=== PATIENT | male | born 1930 | race Caucasian/White ===

== ENCOUNTER 2016-08-24 18:08 | Emergency (ER) | payer BC ==
[~2016-08-24] VITALS: Ht 177.8 cm; Wt 75.5 kg
[~2016-08-24 18:08] MED LIST: ATR10 PO; CETI10TA10 PO; INSUINJ14 SQ; INSUINJ4 SQ; LEVO88TA PO; OMEP20CA9 PO; PARO30TA PO; URSO300C4 PO
[2016-08-24 18:10] VITALS: TEMP 36.8; Ht 177.8 cm; Wt 75.5 kg
[2016-08-24] MEDS ORDERED: ONDANSETRON INJ 2 MG/ML 2 ML VIAL IV STA (18:52)
--- NOTE | 2016-08-24 18:54 | DIAGNOSTIC IMAGING REPORT ---
CHEST ONE VIEW PORTABLE CLINICAL HISTORY: eval for pnea mental status change COMPARISON STUDY: 12/14/2013 FINDINGS: The bones soft tissues and hemidiaphragms are normal. The cardiomediastinal silhouette is normal. The lungs are clear. The pulmonary vasculature is normal. IMPRESSION: Negative chest. Electronically signed by: Mike Blackmon M.D. 08/24/2016 6:53 PM Dictated Date/Time: 08/24/2016 6:52 PM
[2016-08-24 19:27] LABS: PROTHROMBIN TIME (PATIENT) 11.1 SECONDS (9.0-12.0)
[2016-08-24 19:41] LABS: ALKALINE PHOSPHATASE 208 U/L (45-117); ALT/SGPT 32 U/L (12-78); AST/SGOT 29 U/L (15-37); BLOOD UREA NITROGEN 16 mg/dl (7-18); BUN/CREATININE RATIO 14.2 (10-20); CALCIUM 8.8 mg/dl (8.5-10.1); CARBON DIOXIDE 28 mmol/L (21-32); CHLORIDE 103 mmol/L (98-107); GLUCOSE 288 mg/dl (70-99); SODIUM 137 mmol/L (136-145)
[2016-08-24 19:43] LABS: HEMATOCRIT 36.2 % (42-52); MEAN CELL VOLUME 94.3 fL (80-100); MEAN CORPUSCULAR HEMOGLOBIN 30.7 pg (25-34); MEAN CORPUSCULAR HGB CONC 32.6 g/dl (32-36); MEAN PLATELET VOLUME 12.2 fL (7.4-10.4); PLATELET COUNT 125 K/uL (130-400); RED BLOOD COUNT 3.84 M/uL (4.7-6.1); WHITE BLOOD COUNT 5.38 K/uL (4.8-10.8)
[2016-08-24 19:48] LABS: BASO % 0.2 %; BASO ABS # 0.01 K/uL (0-0.2); COMPLETE YES; EOS % 0.2 %; IG% 0.2 %; LARGE PLATELETS 1+; LYMPH % 20.6 %; LYMPH ABS # 1.11 K/uL (1.2-3.4); MONO % 8.7 %; NEUT % 70.1 %; PLT ESTIMATE DECREASED
[2016-08-24] MEDS ORDERED: SODIUM CHLORIDE 0.9% 500ML 500 ML IV STA (20:11)
[2016-08-24] MEDS ORDERED: LEVO125T5 PO (21:16)
[2016-08-24] MEDS ORDERED: OPTIRAY 320 IV PRN (21:30)
--- NOTE | 2016-08-24 21:31 | DIAGNOSTIC IMAGING REPORT ---
HEAD CT NONCONTRAST CT DOSE: 537.48 mGy.cm HISTORY: Mental status change eval for bleed/cva TECHNIQUE: Multiaxial CT images of the head were performed without the use of intravenous contrast. Comparison: 07/29/2011 Findings: The paranasal sinuses and mastoid air cells are clear. The calvarium and skull base are intact. The ventricles and sulci are within normal limits. There is no mass, hematoma, midline shift, or acute infarct. Old dystrophic calcification left cerebral hemispheres unaltered. No acute intracranial hemorrhage. No midline shift. Impression: Chronic and age-related change. No acute process. Electronically signed by: Mike Blackmon M.D. 08/24/2016 9:29 PM Dictated Date/Time: 08/24/2016 9:27 PM
--- NOTE | 2016-08-24 21:40 | DIAGNOSTIC IMAGING REPORT ---
ABDOMEN AND PELVIS CT WITH IV AND ORAL CONTRAST CT DOSE: 447.79 mGy.cm HISTORY: Pain. Nausea. eval for colitis TECHNIQUE: Multiaxial CT images of the abdomen and pelvis were performed following the use of intravenous and oral contrast. COMPARISON STUDY: 12/14/2013 FINDINGS: Minimal dependent basilar atelectatic change. Trace amount of ascites surrounding both liver as well as spleen. Trace amount of ascites within the right and to lesser extent left paracolic gutter area Gallbladder is negative for distention. Mild interval thickening of the root of the mesentery. Several celiac axis and upper retroperitoneal nodes slightly progressive from the prior study. Interval removal of the common duct stent. Bowel pattern overall is nonobstructive. Minimal reactive small bowel ileus. The appendix is seen in part and appears unremarkable. Several iliac chain nodes measuring up to 1.4 cm. IMPRESSION: 1. Interval development of mild/moderate abdominal and pelvic adenopathy. 2. Mild bibasilar atelectatic and pleural reactive change. 3. Mild nonobstructive ileus. 2. Potential early developing hepatic cirrhosis with a trace amount of abdominal and pelvic ascites. 3. Mild retroperitoneal mesenteric, and to a lesser extent pelvic sidewall nodes. This is slightly progressive from the prior study. Electronically signed by: Mike Blackmon M.D. 08/24/2016 9:38 PM Dictated Date/Time: 08/24/2016 9:32 PM
[2016-08-24 23:46] VITALS: BP 128/68; PULSE 78; O2SAT 96
--- NOTE | 2016-08-25 01:29 | EMERGENCY ROOM VISIT NOTE ---
History Report prepared by Brock: Ade Mcqueen Under the Supervision of: Dr. Brenden Knox M.D. First contact with patient: 18:16 Chief Complaint: DIARRHEA Stated Complaint: DIARRHEA,NOT FEELING WELL SINCE FRI History of Present Illness The patient is an 85 year old male who presents to the Emergency Room with complaints of persistent diarrhea starting 2 days ago. [facility] was [email or web address] with a fever of 100.4. He has been having 6 episodes of diarrhea per day. His stool is runny. He denies any black or bloody stools. He also has been having trouble keeping his balance starting 1-2 days ago. He is feeling weak all over and lightheaded. He denies any numbness or weakness on one side. He reports nausea and abdominal pain. He describes his abdominal pain as cramping and it comes and goes. He denies any chest pain, SOB, or vomiting. His denies any urinary symptoms. His urine is not dark. He has been drinking fluids. He denies any recent antibiotics. He denies any recent travel out of the country. He just returned from a trip to [place]. No sick contacts. His is not ill. Source of History: patient Onset: 2 days ago Position: other (global) Symptom Intensity: 6 times a day Quality: other (diarrhea) Timing: other (persistent) Associated Symptoms: + fevers, + abdominal pain, + weakness, No chest pain, No SOB, No vomiting, No melena, No hematochezia, No urinary symptoms, No numbness Note: Pt reports feeling off balance, lightheaded. Review of Systems See HPI for pertinent positives & negatives. A total of 10 systems reviewed and were otherwise negative. 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 Family History Diabetes mellitus FHx: gallbladder disease Social History Smoking Status: Never Smoker Marital Status: Housing Status: lives with significant other Occupation Status: retired Current/Historical Medications Scheduled Cetirizine Hcl (Zyrtec), 10 MG PO HS Hydroxyzine HCl (Hydroxyzine HCl), 10 MG PO TID Insulin Aspart (Novolog Penfill), SQ ACHS Insulin Glargine (Lantus Solostar Pen), 10 UNITS SQ BID Levothyroxine Sodium (Levothyroxine Sodium), 125 MCG PO DAILY Omeprazole (Prilosec), 20 MG PO QAM Paroxetine Hcl (Paxil), 30 MG PO HS Ursodiol (Actigall), 300 MG PO TID Allergies Coded Allergies: Latex (Verified Allergy, Intermediate, ERRYTHEMA/BLISTERS, 08/24/16) Sulfa Drugs (Verified Allergy, Unknown, ., 08/24/16) Acetaminophen (Verified Adverse Reaction, Unknown, NOT TO HAVE ANY DUE TO BILIARY ISSUES, 08/24/16) Physical Exam Vital Signs Date Time Temp Pulse Resp B/P (MAP) Pulse Ox O2 Delivery O2 Flow Rate FiO2 08/24/16 23:46 78 18 128/68 96 08/24/16 22:46 78 20 148/68 96 Room Air 08/24/16 21:28 81 20 138/61 93 Room Air 08/24/16 19:59 79 20 118/57 93 Room Air 08/24/16 19:16 79 20 111/55 80 127/70 82 99/66 08/24/16 19:11 80 18 127/70 92 Room Air 08/24/16 18:40 103 08/24/16 18:10 36.8 84 18 128/62 96 Room Air Physical Exam Constitutional: Vital signs reviewed. Eyes: Pupils are equal round reactive to light. Conjunctiva are noninjected. ENT: Pharynx is clear without erythema or exudate. Mucous membranes are dry. Neck supple without meningeal signs. Respiratory: Clear to auscultation bilaterally. Breath sounds are equal bilaterally. Cardiovascular: Regular rate and rhythm. No rubs or gallops. GI: Soft, nondistended and nontender. Bowel sounds are present. Musculoskeletal: No peripheral edema. No lower extremity tenderness. Integumentary: No cyanosis. Neurological: The patient is awake and alert. Cranial nerves II-XII are intact. Motor is 5 out of 5 all extremities. Sensation is intact to light touch all extremities. Normal speech. No pronator drift. No limb ataxia. No dysdiadochokinesis. Psychiatric: Normal affect. Medical Decision & Procedures ER Provider Diagnostic Interpretation: X-ray results as stated below per interpretation by me and the radiologist. Radiology results as stated below per my review and the radiologist's interpretation: CHEST ONE VIEW PORTABLE CLINICAL HISTORY: eval for pnea mental status change COMPARISON STUDY: 12/14/2013 FINDINGS: The bones soft tissues and hemidiaphragms are normal. The cardiomediastinal silhouette is normal. The lungs are clear. The pulmonary vasculature is normal. IMPRESSION: Negative chest. Electronically signed by: Mike Blackmon M.D. 08/24/2016 6:53 PM Dictated Date/Time: 08/24/2016 6:[address] CT DOSE: 537.48 mGy.cm HISTORY: Mental status change eval for bleed/cva TECHNIQUE: Multiaxial CT images of the head were performed without the use of intravenous contrast. Comparison: 07/29/2011 Findings: The paranasal sinuses and mastoid air cells are clear. The calvarium and skull base are intact. The ventricles and sulci are within normal limits. There is no mass, hematoma, midline shift, or acute infarct. Old dystrophic calcification left cerebral hemispheres unaltered. No acute intracranial hemorrhage. No midline shift. Impression: Chronic and age-related change. No acute process. Electronically signed by: Mike Blackmon M.D. 08/24/2016 9:29 PM Dictated Date/Time: 08/24/2016 9:27 PM ABDOMEN AND PELVIS CT WITH IV AND ORAL CONTRAST CT DOSE: 447.79 mGy.cm HISTORY: Pain. Nausea. eval for colitis TECHNIQUE: Multiaxial CT images of the abdomen and pelvis were performed following the use of intravenous and oral contrast. COMPARISON STUDY: 12/14/2013 FINDINGS: Minimal dependent basilar atelectatic change. Trace amount of ascites surrounding both liver as well as spleen. Trace amount of ascites within the right and to lesser extent left paracolic gutter area Gallbladder is negative for distention. Mild interval thickening of the root of the mesentery. Several celiac axis and upper retroperitoneal nodes slightly progressive from the prior study. Interval removal of the common duct stent. Bowel pattern overall is nonobstructive. Minimal reactive small bowel ileus. The appendix is seen in part and appears unremarkable. Several iliac chain nodes measuring up to 1.4 cm. IMPRESSION: 1. Interval development of mild/moderate abdominal and pelvic adenopathy. 2. Mild bibasilar atelectatic and pleural reactive change. 3. Mild nonobstructive ileus. 2. Potential early developing hepatic cirrhosis with a trace amount of abdominal and pelvic ascites. 3. Mild retroperitoneal mesenteric, and to a lesser extent pelvic sidewall nodes. This is slightly progressive from the prior study. Electronically signed by: Mike Blackmon M.D. 08/24/2016 9:38 PM Dictated Date/Time: 08/24/2016 9:32 PM Laboratory Results 08/24/16 18:55 Red Blood Count 3.84, Mean Corpuscular Volume 94.3, Mean Corpuscular Hemoglobin 30.7, Mean Corpuscular Hemoglobin Concent 32.6, Mean Platelet Volume 12.2, Neutrophils (%) (Auto) 70.1, Lymphocytes (%) (Auto) 20.6, Monocytes (%) (Auto) 8.7, Eosinophils (%) (Auto) 0.2, Basophils (%) (Auto) 0.2, Neutrophils # (Auto) 3.77, Lymphocytes # (Auto) 1.11, Monocytes # (Auto) 0.47, Eosinophils # (Auto) 0.01, Basophils # (Auto) 0.01 08/24/16 18:55 Test 08/24/16 18:55 White Blood Count 5.38 K/uL (4.8-10.8) Red Blood Count 3.84 M/uL (4.7-6.1) Hemoglobin 11.8 g/dL (14.0-18.0) Hematocrit 36.2 % (42-52) Mean Corpuscular Volume 94.3 fL (80-100) Mean Corpuscular Hemoglobin 30.7 pg (25-34) Mean Corpuscular Hemoglobin Concent 32.6 g/dl (32-36) Platelet Count 125 K/uL (130-400) Mean Platelet Volume 12.2 fL (7.4-10.4) Neutrophils (%) (Auto) 70.1 % Lymphocytes (%) (Auto) 20.6 % Monocytes (%) (Auto) 8.7 % Eosinophils (%) (Auto) 0.2 % Basophils (%) (Auto) 0.2 % Neutrophils # (Auto) 3.77 K/uL (1.4-6.5) Lymphocytes # (Auto) 1.11 K/uL (1.2-3.4) Monocytes # (Auto) 0.47 K/uL (0.11-0.59) Eosinophils # (Auto) 0.01 K/uL (0-0.5) Basophils # (Auto) 0.01 K/uL (0-0.2) RDW Standard Deviation 55.4 fL (36.4-46.3) RDW Coefficient of Variation 15.9 % (11.5-14.5) Immature Granulocyte % (Auto) 0.2 % Immature Granulocyte # (Auto) 0.01 K/uL (0.00-0.02) Platelet Estimate DECREASED Large Platelets 1+ Prothrombin Time 11.1 SECONDS (9.0-12.0) Prothromb Time International Ratio 1.0 (0.9-1.1) Activated Partial Thromboplast Time 25.4 SECONDS (21.0-31.0) Partial Thromboplastin Ratio 1.0 Anion Gap 6.0 mmol/L (3-11) Est Creatinine Clear Calc Drug Dose 49.8 ml/min Estimated GFR () 70.1 Estimated GFR (Non- 60.5 BUN/Creatinine Ratio 14.2 (10-20) Calcium Level 8.8 mg/dl (8.5-10.1) Total Bilirubin 0.6 mg/dl (0.2-1) Direct Bilirubin mg/dl (0-0.2) Aspartate Amino Transf (AST/SGOT) 29 U/L (15-37) Alanine Aminotransferase (ALT/SGPT) 32 U/L (12-78) Alkaline Phosphatase 208 U/L (45-117) Troponin I < 0.015 ng/ml (0-0.045) Total Protein 7.9 gm/dl (6.4-8.2) Albumin 2.8 gm/dl (3.4-5.0) Lipase 32 U/L (73-393) Chemistry Specimen Hemolysis Laboratory results as reviewed by me. Medications Administered Medications (Trade) Dose Ordered Sig/Santhosh Route Start Time Stop Time Status Last Admin Dose Admin Ondansetron HCl (Zofran Inj) 4 mg NOW STAT IV 08/24/16 18:52 08/24/16 18:53 DC 08/24/16 19:09 4 MG Sodium Chloride 500 ml @ 999 mls/hr Q31M STAT IV 08/24/16 20:11 08/24/16 20:41 DC 08/24/16 20:38 999 MLS/HR ECG Indication: weakness Rate (beats per minute): 79 Rhythm: normal sinus Findings: RBBB, no acute ischemic change Comparison ECG Date: Nov 2013 Change: no significant change ED Course 1818: The patient was evaluated in room A3. A complete history and physical exam was performed. 1851: Zofran Inj 4 mg IV. 2010: NSS 500 ml @ 999 mls/hr IV. 2012: I reevaluated the patient. I updated him and the family on the lab results. 0: I reevaluated the patient. He is still having diarrhea. We are waiting on the C diff results. He feels better after IV fluids. I discussed the test results and abnormal CT with him. 2323: Upon reevaluation, the patient appeared to have improvement of his symptoms. I discussed tonight's findings with him. He verbalized agreement of the treatment plan. He was discharged home. Medical Decision This is an 85-year-old male who presents with generalized weakness, imbalance and diarrhea. Differential diagnosis includes dehydration, foodborne illness, electrolyte abnormality, colitis, diverticulitis, intracranial hemorrhage. I did perform a limited focused review of portions of the patient's old chart on the electronic medical record. The patient has had no recent pertinent visits to this hospital. Medication Reconciliation: I attest that I have personally reviewed the patient' s current medication list. Blood Pressure Screening: Patient was found to have an elevated blood pressure and was referred to their primary doctor for recheck and further treatment. I did evaluate the patient as noted above. The patient is presenting with generalized weakness. He has had diarrhea. He states he feels lightheaded and off balance when he stands up. IV access was established. The patient was placed on a continuous cane weigher. I did order and personally review the patient's 12-lead EKG and chest x-ray as described above. I did order and review the patient's blood work as noted in the electronic medical record. He is anemic and slightly thrombocytopenic. He has had this in the past. His sugar is also elevated. He does have a history of diabetes. I did obtain orthostatic vital signs. He does show orthostatic hypotension. This is likely secondary to dehydration from his diarrhea. He was given normal saline IV. I did order a CT of the head, abdomen and pelvis. I did review the images myself as well as the radiology report as described above. He does have lymphadenopathy and signs of ileus. I did order a stool culture. Antigen testing for C. difficile was negative. I did discuss the test results with the patient and his family. He states he is feeling much better now after he received fluids. He does feel well enough for discharge. I did discuss the test results with the patient and his family in detail. He states that he did not know that he had a prior history of anemia and thrombocytopenia. He will follow up with his doctor and discuss his test results with his doctor. He was discharged in good condition. Impression Primary Impression: Dehydration Additional Impressions: Orthostatic hypotension Diarrhea Hyperglycemia Anemia Thrombocytopenia Abdominal lymphadenopathy Scribe Attestation The scribe's documentation has been prepared under my direct and personally reviewed by me in its entirety. I confirm that the note above accurately reflects all work, treatment, procedures, and medical decision making performed by me. Departure Information Dispostion Home / Self-Care Referrals Tierra Little, (PCP) Forms HOME CARE DOCUMENTATION FORM, IMPORTANT VISIT INFORMATION, WORK / SCHOOL INSTRUCTIONS Patient Instructions ED Hypotension Orthostatic, ED Vomiting Diarrhea Nonspecific Ad, My [facility] Additional Instructions You have been examined and treated today on an emergency basis only. This is not a substitute for, or an effort to provide, complete comprehensive medical care. It is impossible to recognize and treat all injuries or illnesses in a single emergency department visit. It is therefore important that you follow up closely with your physician. Call as soon as possible for an appointment. Talk to your doctor about your CT scan results. Return for worsening symptoms or if you develop fever, vomiting, chest pain or shortness of breath, or any other concerning symptoms. Problem Qualifiers Additional Impressions: Diarrhea Diarrhea type: unspecified type Qualified Codes: R19.7 - Diarrhea, unspecified Anemia Anemia type: unspecified type Qualified Codes: D64.9 - Anemia, unspecified
[2016-12-09] MEDS ORDERED: INSU1INJ SC (13:20)
[2016-12-24] MEDS ORDERED: CEPH500C PO (11:06)
[2017-01-28] MEDS ORDERED: FURO-85 PO (10:18)
[2017-01-28] MEDS ORDERED: DIPH25CA5 PO (10:18)
[2017-01-28] MEDS ORDERED: LEVO137C2 PO (10:18)
[2017-01-28] MEDS ORDERED: CEPH500T PO (10:18)
[2017-01-28] MEDS ORDERED: POTA10CA28 PO (10:18)
[2017-01-28] MEDS ORDERED: NVLGI7030 SC ×2 (10:18)
[2017-02-19] MEDS ORDERED: CEPH500C PO (15:08)
== END 2016-08-24 23:47 | disposition home or self-care (01) ==
LOC: C.EDB 18:09 → C.EDA 23:47
DX: E86.0 Dehydration (principal); I95.1 Orthostatic hypotension; R19.7 Diarrhea, unspecified; K74.3 Primary biliary cirrhosis; Z79.4 Long term (current) use of insulin; Z79.899 Other long term (current) drug therapy; Z88.2 Allergy status to sulfonamides; Z88.6 Allergy status to analgesic agent; Z91.040 Latex allergy status; Z83.3 Family history of diabetes mellitus; Z83.79 Family history of other diseases of the digestive system

== ENCOUNTER → 2016-09-09 | Outpatient (CLI) | payer BC ==
[~2016-09-09] MED LIST changes: +CEPH500C PO; +CEPH500T PO; +DIPH25CA5 PO; +FURO-85 PO; +INSU1INJ SC; +LEVO125T5 PO; +LEVO137C2 PO; -LEVO88TA PO; +NVLGI7030 SC; +POTA10CA28 PO
--- NOTE | 2016-09-09 12:58 | DIAGNOSTIC IMAGING REPORT ---
Venous Doppler left leg VENOUS DOPP LOWER EXT UNILAT CLINICAL HISTORY: LEFT LOWER LEG PAIN SWELLING pain. Edema. TECHNIQUE: Venous Doppler COMPARISON STUDY: None FINDINGS: Normal study IMPRESSION: Normal study Electronically signed by: Mike Blackmon M.D. 09/09/2016 12:57 PM Dictated Date/Time: 09/09/2016 12:55 PM
[2016-09-09 14:50] LABS: BASO % 0.7 %; BASO ABS # 0.03 K/uL (0-0.2); COMPLETE YES; EOS % 5.5 %; HEMATOCRIT 33.5 % (42-52); IG% 0.2 %; LYMPH ABS # 1.35 K/uL (1.2-3.4); MEAN CELL VOLUME 94.1 fL (80-100); MEAN CORPUSCULAR HEMOGLOBIN 29.8 pg (25-34); MEAN CORPUSCULAR HGB CONC 31.6 g/dl (32-36); MEAN PLATELET VOLUME 12.5 fL (7.4-10.4); MONO % 7.6 %; PLATELET COUNT 146 K/uL (130-400); RED BLOOD COUNT 3.56 M/uL (4.7-6.1); WHITE BLOOD COUNT 4.22 K/uL (4.8-10.8)
[2016-09-09 14:59] LABS: ALT/SGPT 27 U/L (12-78); AST/SGOT 23 U/L (15-37); BLOOD UREA NITROGEN 14 mg/dl (7-18); BUN/CREATININE RATIO 15.7 (10-20); CALCIUM 8.2 mg/dl (8.5-10.1); CARBON DIOXIDE 27 mmol/L (21-32); CHLORIDE 106 mmol/L (98-107); CREATININE 0.92 mg/dl (0.60-1.40); GLUCOSE 261 mg/dl (70-99); POTASSIUM 4.5 mmol/L (3.5-5.1); SODIUM 139 mmol/L (136-145)
[2016-09-09 15:01] LABS: ESTIMATED AVERAGE GLUCOSE 260 mg/dl; HA1C FLAG Normal (Normal)
[2016-09-09 15:09] LABS: ALB/GLOB RATIO 0.6 (0.9-2); ALKALINE PHOSPHATASE 213 U/L (45-117)
== END | disposition home or self-care (01) ==
LOC: C.ULTR 12:26
PROVIDERS: ATTEND Nurse Practitioner Adult Health
DX: M79.662 Pain in left lower leg (principal); M79.89 Other specified soft tissue disorders; E11.9 Type 2 diabetes mellitus without complications; E03.9 Hypothyroidism, unspecified

== ENCOUNTER → 2016-09-23 | Outpatient (CLI) | payer BC ==
[~2016-09-23] MED LIST changes: -CEPH500T PO; -DIPH25CA5 PO; -FURO-85 PO; +LEVO125T4 PO; -LEVO125T5 PO; -LEVO137C2 PO; -NVLGI7030 SC; -POTA10CA28 PO
--- NOTE | 2016-09-23 12:09 | DIAGNOSTIC IMAGING REPORT ---
LEFT KNEE 1 OR 2 VIEWS ROUTINE CLINICAL HISTORY: M79.662 Pain and swelling of left lower [id number] pain COMPARISON: None. DISCUSSION: The bones and joint spaces appear intact. There is no evidence of fracture, dislocation or bony disease. There is no evidence for soft tissue swelling. IMPRESSION: Negative study. Electronically signed by: Mike Blackmon M.D. 09/23/2016 12:08 PM Dictated Date/Time: 09/23/2016 12:07 PM
--- NOTE | 2016-09-23 12:09 | DIAGNOSTIC IMAGING REPORT ---
LEFT ANKLE MIN 3 VIEWS ROUTINE CLINICAL HISTORY: M79.662 Pain and swelling of left lower [id number] COMPARISON: None. DISCUSSION: No acute fractures or dislocations are visualized. There is mild bimalleolar soft tissue swelling. There is minor irregularity the medial malleolar tip. This is likely chronic. IMPRESSION: 1. Mild irregularity of the medial malleolar tip, likely chronic 2. Soft tissue swelling 3. No acute fractures or dislocations identified Electronically signed by: Wesley Chicas M.D. 09/23/2016 12:08 PM Dictated Date/Time: 09/23/2016 12:07 PM
[2016-09-23 14:08] LABS: C-REACTIVE PROTEIN 0.35 mg/dl (0-0.29); URIC ACID 2.8 mg/dl (2.6-7.2)
== END | disposition home or self-care (01) ==
LOC: C.RAD1850 11:35
PROVIDERS: ATTEND Nurse Practitioner Family
DX: M79.89 Other specified soft tissue disorders (principal); M79.662 Pain in left lower leg

== ENCOUNTER → 2016-10-01 | Outpatient (CLI) | payer BC ==
--- NOTE | 2016-10-01 16:54 | DIAGNOSTIC IMAGING REPORT ---
CHEST 2 VIEWS ROUTINE CLINICAL HISTORY: FALL, ACCIDENTAL COMPARISON STUDY: Chest radiograph August 24, 2016. FINDINGS: There is no pneumothorax or pleural effusion. Mild bibasilar opacities favor atelectasis. Mild cardiomegaly is noted without evidence of pulmonary edema. IMPRESSION: 1. No pneumothorax. 2. Mild bibasilar opacities which likely reflect atelectasis. 3. Mild cardiomegaly without evidence of pulmonary edema. Electronically signed by: Justin Lang M.D. 10/01/2016 4:52 PM Dictated Date/Time: 10/01/2016 4:50 PM
== END | disposition home or self-care (01) ==
LOC: C.RAD1850 16:12
PROVIDERS: ATTEND Nurse Practitioner Adult Health
DX: T14.90 Injury, unspecified (principal); W19.XXXA Unspecified fall, initial encounter; I51.7 Cardiomegaly

== ENCOUNTER → 2016-10-07 | Outpatient (CLI) | payer BC ==
[2016-10-07 15:26] LABS: HEMATOCRIT 32.1 % (42-52); MEAN CELL VOLUME 92.8 fL (80-100); MEAN CORPUSCULAR HEMOGLOBIN 28.9 pg (25-34); MEAN CORPUSCULAR HGB CONC 31.2 g/dl (32-36); RED BLOOD COUNT 3.46 M/uL (4.7-6.1); WHITE BLOOD COUNT 4.01 K/uL (4.8-10.8)
[2016-10-07 15:56] LABS: BASO % 0.5 %; BASO ABS # 0.02 K/uL (0-0.2); COMPLETE YES; EOS % 4.5 %; GIANT PLATELETS 2+; IG% 0.2 %; LYMPH % 28.7 %; LYMPH ABS # 1.15 K/uL (1.2-3.4); MEAN PLATELET VOLUME 12.1 fL (7.4-10.4); MONO % 12.5 %; NEUT % 53.6 %; PLATELET COUNT 127 K/uL (130-400); PLT ESTIMATE DECREASED
[2016-10-07 16:06] LABS: TOTAL IRON BINDING CAPACITY 322 mcg/dl (250-450)
== END | disposition home or self-care (01) ==
LOC: C.RAD1850 14:51
PROVIDERS: ATTEND Nurse Practitioner Adult Health
DX: G47.19 Other hypersomnia (principal); D64.9 Anemia, unspecified

== ENCOUNTER → 2016-11-13 | Outpatient (CLI) | payer BC ==
[2016-11-13 16:59] LABS: ALT/SGPT 31 U/L (12-78); AST/SGOT 33 U/L (15-37); BLOOD UREA NITROGEN 14 mg/dl (7-18); BUN/CREATININE RATIO 12.5 (10-20); CALCIUM 8.6 mg/dl (8.5-10.1); CARBON DIOXIDE 29 mmol/L (21-32); CHLORIDE 105 mmol/L (98-107); GLUCOSE 282 mg/dl (70-99); INR 1.1 (0.9-1.1); POTASSIUM 4.5 mmol/L (3.5-5.1); PROTHROMBIN TIME (PATIENT) 11.4 SECONDS (9.0-12.0); SODIUM 138 mmol/L (136-145)
[2016-11-13 17:04] LABS: ALKALINE PHOSPHATASE 251 U/L (45-117); FERRITIN 11.6 ng/ml (8.0-388.0)
== END | disposition home or self-care (01) ==
LOC: C.LAB1850 14:21
PROVIDERS: ATTEND Nurse Practitioner Adult Health
DX: R60.9 Edema, unspecified (principal); K76.9 Liver disease, unspecified; D64.9 Anemia, unspecified

== ENCOUNTER → 2016-12-11 | Outpatient (CLI) | payer BC ==
[~2016-12-11] MED LIST changes: -INSUINJ14 SQ; -INSUINJ4 SQ
[2016-12-11 11:00] LABS: ESTIMATED AVERAGE GLUCOSE 197 mg/dl; HA1C FLAG Normal (Normal)
[2016-12-11 11:06] LABS: BLOOD UREA NITROGEN 16 mg/dl (7-18); BUN/CREATININE RATIO 14.9 (10-20); CALCIUM 8.5 mg/dl (8.5-10.1); CARBON DIOXIDE 27 mmol/L (21-32); CHLORIDE 110 mmol/L (98-107); GLUCOSE 150 mg/dl (70-99); POTASSIUM 4.4 mmol/L (3.5-5.1); SODIUM 141 mmol/L (136-145)
[2016-12-11 11:17] LABS: CHOLESTEROL 131 mg/dl (0-200); CHOLESTEROL/HDL RATIO 2.2; HDL CHOLESTEROL 60 mg/dl; LDL CHOLESTEROL CALCULATED 62 mg/dl; TRIGLYCERIDES 46 mg/dl (0-150); VERY LOW DENSITY LIPOPROT CALC 9 mg/dl
== END | disposition home or self-care (01) ==
LOC: C.RAD1850 09:17
PROVIDERS: ATTEND Nurse Practitioner Family
DX: E11.65 Type 2 diabetes mellitus with hyperglycemia (principal); Z79.4 Long term (current) use of insulin

== ENCOUNTER → 2016-12-30 | Outpatient (CLI) | payer BC ==
--- NOTE | 2016-12-30 14:40 | DIAGNOSTIC IMAGING REPORT ---
ULTRASOUND ABDOMEN COMPLETE CLINICAL HISTORY: Sclerosing cholangitis. Gallbladder mass. COMPARISON STUDY: Abdominal CT dated 08/24/2016. TECHNIQUE: Real-time, grayscale, and color flow sonography of the abdomen was performed. Images are reviewed in the transverse and longitudinal planes. FINDINGS: Liver: The liver is normal in size and heterogeneous in echotexture. There is no intrahepatic biliary ductal dilatation. The main portal vein is patent. Gallbladder: Calcified gallstones and biliary sludge are noted. There is no sonographic evidence of vascular gallbladder mass. There is no gallbladder wall thickening or pericholecystic fluid. A sonographic Enriquez's sign is reportedly absent. The common bile duct measures up to 0.5 cm in diameter. Pancreas: Not well visualized due to overlying bowel gas. Spleen: The spleen is mildly enlarged measuring 14.2 cm in length. Kidneys: The kidneys are atrophic. There is no hydronephrosis. The right kidney measures 11.1 cm in length and the left kidney measures 10.1 cm in length. No shadowing calculi are identified. Abdominal vasculature: Visualized portions of the abdominal aorta are normal as visualized noting atherosclerotic irregularity. Ascites: None. IMPRESSION: 1. Gallstones and biliary sludge without sonographic evidence of acute cholecystitis. 2. There is no convincing sonographic evidence of gallbladder mass as clinically queried. Electronically signed by: Wesley Bui M.D. 12/30/2016 2:39 PM Dictated Date/Time: 12/30/2016 2:36 PM
== END | disposition home or self-care (01) ==
LOC: C.ULTR 10:24
PROVIDERS: ATTEND Internal Medicine Gastroenterology
DX: K83.0 Cholangitis (principal)

== ENCOUNTER 2017-01-15 23:51 | Emergency (ER) | payer BC ==
[~2017-01-15] VITALS: Ht 177.8 cm; Wt 83.0 kg
[~2017-01-15 23:51] MED LIST changes: -CEPH500T PO; -DIPH25CA5 PO; -FURO-85 PO; -LEVO137C2 PO; -NVLGI7030 SC; -OPTIRAY 320 IV PRN; -POTA10CA28 PO
[2017-01-15 23:58] VITALS: TEMP 36.5; Ht 177.8 cm; Wt 83.0 kg
--- NOTE | 2017-01-16 01:09 | EMERGENCY ROOM VISIT NOTE ---
History Report prepared by Brock: Sia Rain Under the Supervision of: Dr. Joe Taveras M.D. First contact with patient: 00:01 Chief Complaint: HYPOGLYCEMIA Stated Complaint: BLOOD SUGAR NUMBER 51 History of Present Illness The patient is an 86 year old male who presents to the Emergency Room with complaints of an episode of hypoglycemia starting today. The patient states that he has been feeling shaky and he noticed his sugars were low. He states that he missed lunch today because he had a CT done. He states that he drank orange juice before coming in. The patient complains of itching like crazy. The patient denies urinary symptoms, chest pain, and shortness of breath. Source of History: patient Onset: today Position: other (global) Quality: other (global) Timing: other (episode) Associated Symptoms: No chest pain, No SOB, No urinary symptoms Note: The patient complains of shaking and itching. Review of Systems See HPI for pertinent positives & negatives. A total of 10 systems reviewed and were otherwise negative. 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 Family History Diabetes mellitus FHx: gallbladder disease Social History Smoking Status: Never Smoker Marital Status: Housing Status: lives with significant other Occupation Status: retired Current/Historical Medications Scheduled Cephalexin Monohydrate (Keflex), 1 CAP PO BID Cetirizine Hcl (Zyrtec), 10 MG PO HS Hydroxyzine HCl (Hydroxyzine HCl), 10 MG PO TID Insulin Isophan/Regular (Humulin 70/30), 0 SC BID Levothyroxine Sodium (Levothyroxine Sodium), 125 MCG PO DAILY Omeprazole (Prilosec), 20 MG PO QAM Paroxetine Hcl (Paxil), 30 MG PO HS Ursodiol (Actigall), 300 MG PO TID Allergies Coded Allergies: Latex (Verified Allergy, Intermediate, ERRYTHEMA/BLISTERS, 08/24/16) Sulfa Drugs (Verified Allergy, Unknown, ., 08/24/16) Acetaminophen (Verified Adverse Reaction, Unknown, NOT TO HAVE ANY DUE TO BILIARY ISSUES, 08/24/16) Physical Exam Vital Signs Date Time Temp Pulse Resp B/P (MAP) Pulse Ox O2 Delivery O2 Flow Rate FiO2 01/16/17 01:58 75 16 126/67 93 Room Air 01/15/17 23:58 36.5 93 16 153/62 99 Room Air Physical Exam GENERAL: Patient is chronically unwell appearing and in no acute distress. HEENT: No acute trauma, normocephalic atraumatic, mucous membranes moist, no nasal congestion, no scleral icterus. NECK: No stridor, no adenopathy, no meningismus, trachea is midline. LUNGS: No dyspnea. Clear to auscultation and equal bilaterally. No wheeze, no rhonchi. HEART: Regular rate and rhythm. No murmurs, rubs, gallops appreciated. ABDOMEN: Soft, nontender, bowel sounds positive, no masses appreciated, no peritonitis. Large abdomen. BACK: No midline tenderness, no CVA tenderness EXTREMITIES: Normal motion all extremities, no cyanosis. Edema in bilateral lower legs. NEUROLOGIC: Alert and oriented, no acute motor or sensory deficits, no focal weakness, cranial nerves grossly intact. SKIN: No rash, no jaundice, no diaphoresis. Medical Decision & Procedures Laboratory Results Test 01/16/17 01:35 Bedside Glucose 130 mg/dl (70-99) Medications Administered Medications (Trade) Dose Ordered Sig/Santhosh Route Start Time Stop Time Status Last Admin Dose Admin Diphenhydramine HCl (Benadryl Cap) 50 mg NOW ONCE PO 01/16/17 01:00 01/16/17 01:02 DC 01/16/17 01:16 50 MG ED Course 0003: The patient was evaluated in room A3. A complete history and physical exam was performed. 0058: I reevaluated the patient and he would like some Benadryl for his chronic itching. 0100: Ordered Benadryl Cap 50 mg PO. 0131: Reevaluated the patient. Discussed results and discharge instructions: He verbalized understanding and agreement. The patient is ready for discharge. Medical Decision 86 yr old male arrives for evaluation of hypoglycemia. History of liver disorder and was having CT done earlier resulting in him not having lunch. Shaky earlier with low BG thus brought to ED for further evaluation. BG low but easily increased with OJ and food. He is in no distress other than chronic itching for which he was given PO Benadryl. No other symptoms and feeling fine. Given clear reason why he was hypoglycemic it seems reasonable avoiding labs. Feeling well with no complaints and requesting discharge. After 2 rounds of normal BG I felt it reasonable to discharge with family who are comfortable with monitoring at home. Head Trauma GCS Score: 15 Medication Reconcilliation Current Medication List: was personally reviewed by me Blood Pressure Screening Patient's blood pressure: Normal blood pressure Blood pressure disposition: Did not require urgent referral Impression Primary Impression: Hypoglycemia Additional Impression: Itching Scribe Attestation The scribe's documentation has been prepared under my direction and personally reviewed by me in its entirety. I confirm that the note above accurately reflects all work, treatment, procedures, and medical decision making performed by me. Departure Information Dispostion Home / Self-Care Referrals Millicnet Dutton C.R.N.P. (PCP) Forms HOME CARE DOCUMENTATION FORM, IMPORTANT VISIT INFORMATION, WORK / SCHOOL INSTRUCTIONS Patient Instructions My [facility] [employer] Additional Instructions Check your blood sugar every few hours over the next few days. Eat a well balanced diet as well. Eat/Drink sugary substance if your blood sugar is going down. Call 911 if confusion, vomiting, altered mental status or other concerns. Problem Qualifiers
[2017-01-16 01:58] VITALS: BP 126/67; PULSE 75; O2SAT 93
[2017-01-28] MEDS ORDERED: NVLGI7030 SC ×2 (10:18)
[2017-01-28] MEDS ORDERED: CEPH500T PO (10:18)
[2017-01-28] MEDS ORDERED: DIPH25CA5 PO (10:18)
[2017-01-28] MEDS ORDERED: LEVO137C2 PO (10:18)
[2017-01-28] MEDS ORDERED: FURO-85 PO (10:18)
[2017-01-28] MEDS ORDERED: POTA10CA28 PO (10:18)
== END 2017-01-16 02:05 | disposition home or self-care (01) ==
LOC: C.EDB 23:53 → C.EDA 01-16 02:05
DX: E16.2 Hypoglycemia, unspecified (principal); L29.9 Pruritus, unspecified; K74.5 Biliary cirrhosis, unspecified; K83.0 Cholangitis; Z83.3 Family history of diabetes mellitus; Z83.79 Family history of other diseases of the digestive system; Z79.899 Other long term (current) drug therapy

== ENCOUNTER → 2017-01-15 | Outpatient (CLI) | payer BC ==
[~2017-01-15] MED LIST changes: +CEPH500T PO; +DIPH25CA5 PO; +FURO-85 PO; -LEVO125T4 PO; +LEVO125T5 PO; +LEVO137C2 PO; +NVLGI7030 SC; +OPTIRAY 320 IV PRN; +POTA10CA28 PO
--- NOTE | 2017-01-15 16:38 | DIAGNOSTIC IMAGING REPORT ---
ABD/PELVIS IV AND ORAL CONT CT DOSE: 484.90 mGy.cm HISTORY: Abnormal CT and ultrasound R93.8 Abnormal finding on [id number] TECHNIQUE: Multiaxial CT images of the abdomen and pelvis were performed following the use of intravenous and oral contrast. A dose lowering technique was utilized adhering to the principles of ALARA. COMPARISON STUDY: CT abdomen and pelvis 08/24/2016. Ultrasound 12/30/2016. FINDINGS: Improving basilar atelectatic and/or fibrotic change in the right as well as left base. Mild stable splenomegaly. Slight heterogeneity of the liver suggesting early hepatic cirrhosis. This is similar. Diminished perihepatic ascites. Stable to slightly progressive para-aortic mesenteric and retroperitoneal adenopathy. Mild body wall anasarca. Somewhat progressive mesenteric eitan pathology. Masslike changes involving the cecum measuring up to 5 cm. Mild generalized colonic wall thickening of the sigmoid and to a lesser extent descending colon. IMPRESSION: 1. Mildly progressive adenopathy of the abdomen, pelvis, and inguinal region. 2. Masslike fecal content versus a developing masslike process in the region of the cecum. 3. Moderate nonspecific wall thickening of the sigmoid as well as descending colonic region. 4. Mild developing anasarca. 6. Mild hepatic cirrhosis. 7. Slightly improved minimal hepatic ascites. The above report was generated using voice recognition software. It may contain grammatical, syntax or spelling errors. Electronically signed by: Mike Blackmon M.D. 01/15/2017 4:36 PM Dictated Date/Time: 01/15/2017 4:26 PM
== END | disposition home or self-care (01) ==
LOC: C.CTS 15:26
PROVIDERS: ATTEND Nurse Practitioner Adult Health
DX: R93.8 Abnormal findings on diagnostic imaging of other specified body structures (principal)

== ENCOUNTER → 2017-02-04 | Day surgery (SDC) | payer BC ==
[2017-01-28 10:29] VITALS: Ht 177.8 cm; Wt 83.2 kg
[~2017-02-04] VITALS: Ht 177.8 cm; Wt 83.2 kg
[~2017-02-04] MED LIST changes: +ATROPINE SULFATE 0.1 MG/ML 5ML SYR IV PRN; -CEPH500C PO; -CETI10TA10 PO; +DIPH25CA5 PO; +EpHEDrine SULFATE INJ 50 MG/ML AMP IV PRN; +FURO-85 PO; -INSU1INJ SC; -LEVO125T5 PO; +LEVO137C2 PO; +LIDOCAINE HCL 2% 2 ML VIAL (20MG/ML) ONE; +NVLGI7030 SC; +POTA10CA28 PO; +PROPOFOL IV EMULSION 10 MG/ML 20 ML VIAL IV ONE
--- NOTE | 2017-02-04 13:30 | Endo History and Physical ---
History & Physical Date of Service: Feb 04, 2017. Chief Complaint: Abnl CT Referring Physician: Dr Dutton History of Present Illness For colonoscopy Past Surgical History Hx Cardiac Surgery: No Hx Internal Defibrillator: No Hx Pacemaker: No Hx Abdominal Surgery: Yes (LIVER STENTS AND REMOVAL, APPY) Hx of Implantable Prosthesis: No Hx Post-Op Nausea and Vomiting: No Hx Cancer Surgery: No Hx Thoracic Surgery: No Hx Orthopedic: No Hx Urinary Tract Surgery: No Family History Colon CA Social History Smoking Status: Never Smoker Hx Substance Use: No Hx Alcohol Use: No Allergies Coded Allergies: Latex (Verified Allergy, Intermediate, ERRYTHEMA/BLISTERS, 01/28/17) Sulfa Drugs (Verified Allergy, Unknown, HIVES, 01/28/17) Acetaminophen (Verified Adverse Reaction, Unknown, NOT TO HAVE ANY DUE TO BILIARY ISSUES, 01/28/17) Current Medications Reported Home Medications Medications Dose Route/Sig Max Daily Dose Days Date Category Dose Instructions Benadryl (Diphenhydramine Hcl) 25 Mg Cap 1-2 Tabs PO HS 01/28/17 Reported Novolog Mix 70/30 (Insulin Aspart Prota 70%/Aspart 30%) Susp 22 Units SC QPM 01/28/17 Reported Novolog Mix 70/30 (Insulin Aspart Prota 70%/Aspart 30%) Susp 28 Units SC QAM 01/28/17 Reported Lasix (Furosemide) 20 Mg Tab 20 Mg PO QAM 01/28/17 Reported Micro-K Ext Rel (Potassium Chloride) 10 Meq Capcr 10 Meq PO QAM 01/28/17 Reported Tirosint (Levothyroxine Sodium) 137 Mcg Cap 1 Cap PO QAM 01/28/17 Reported Hydroxyzine HCl 10 Mg Tab 10 Mg PO TID 09/25/14 Reported Prilosec (Omeprazole) 20 Mg Cap 20 Mg PO QAM 12/14/13 Reported TAKE BEFORE BREAKFAST Paxil (Paroxetine Hcl) 30 Mg Tab 30 Mg PO HS 07/29/11 Reported Actigall (Ursodiol) 300 Mg Cap 300 Mg PO TID 07/29/11 Reported Vital Signs Weight (Kilograms): 83.18 Height (Feet): 5 Height (Inches): 10 Physical Exam General Appearance: WD/WN Respiratory/Chest: Respiratory effort: no dyspnea Cardiovascular: Heart Auscultation: RRR Abdomen: Inspection & Palpation: soft Assessment and Plan [facility]
--- NOTE | 2017-02-04 14:22 | Discharge Instructions ---
Endoscopy Patient Instructions Date / Procedure(s) Performed Feb 04, 2017. Colonoscopy Allergy Information Coded Allergies: Latex (Verified Allergy, Intermediate, ERRYTHEMA/BLISTERS, 01/28/17) Sulfa Drugs (Verified Allergy, Unknown, HIVES, 01/28/17) Acetaminophen (Verified Adverse Reaction, Unknown, NOT TO HAVE ANY DUE TO BILIARY ISSUES, 01/28/17) Discharge Date / Findings Feb 04, 2017. polyps, hemorrhoids Medication Instructions Restart Stopped Medication(s): resume meds Reported Home Medications Medications Dose Route/Sig Max Daily Dose Days Date Category Dose Instructions Benadryl (Diphenhydramine Hcl) 25 Mg Cap 1-2 Tabs PO HS 01/28/17 Reported Novolog Mix 70/30 (Insulin Aspart Prota 70%/Aspart 30%) Susp 22 Units SC QPM 01/28/17 Reported Novolog Mix 70/30 (Insulin Aspart Prota 70%/Aspart 30%) Susp 28 Units SC QAM 01/28/17 Reported Lasix (Furosemide) 20 Mg Tab 20 Mg PO QAM 01/28/17 Reported Micro-K Ext Rel (Potassium Chloride) 10 Meq Capcr 10 Meq PO QAM 01/28/17 Reported Tirosint (Levothyroxine Sodium) 137 Mcg Cap 1 Cap PO QAM 01/28/17 Reported Hydroxyzine HCl 10 Mg Tab 10 Mg PO TID 09/25/14 Reported Prilosec (Omeprazole) 20 Mg Cap 20 Mg PO QAM 12/14/13 Reported TAKE BEFORE BREAKFAST Paxil (Paroxetine Hcl) 30 Mg Tab 30 Mg PO HS 07/29/11 Reported Actigall (Ursodiol) 300 Mg Cap 300 Mg PO TID 07/29/11 Reported Provider Instructions Activity Restrictions - No exercising or heavy lifting for 24 hours. - Do not drink alcohol the day of the procedure. - Do not drive a car or operate machinery until the day after the procedure. - Do not make any important decisions or sign important papers in 24 hours after the procedure. Following Day: - Return to full activity which may include returning to work/school. Diet Start your diet with liquids and light foods (jello, soup, juice, toast). Then eat your usual diet if not nauseated. Treatment For Common After Affects For mild abdominal pain, bloating, or excessive gas: - Rest - Eat lightly - Lie on right side Follow-Up Information Follow-up with JOSE FRANCISCO Sood as scheduled Anesthesia Information What You Should Know You have had a procedure that required some medicine to reduce anxiety and discomfort. This treatment is called moderate sedation. After receiving the treatment, you may be sleepy, but you will be able to breathe on your own. The effects of the treatment may last for several hours. Follow these instructions along with Activity/Diet recommendations noted above: * Do NOT do anything where dizziness or clumsiness would be dangerous. * Rest quietly at home today, then you can be up and about tomorrow. * Have a responsible person stay with you the rest of today. * You may have had an I.V. today. If so, you may take the dressing off later today. Recommendations Call your doctor if: * Trouble breathing * Continuous vomiting for more than 24 hours * Temperature above 101 degrees * Severe abdominal pain or bloating * Pain not relieved by pain medicine ordered * There is increased drainage or redness from any incision * A large amount of rectal bleeding greater than 2-3 tablespoons. (If you had a polyp/s removed or have hemorrhoids, a small amount of blood - from the rectum is to be expected.) * You have any unanswered questions or concerns. IN THE EVENT OF A SERIOUS EMERGENCY, GO TO THE NEAREST EMERGENCY ROOM Your discharge instructions were prepared by provider Presley Gilbert. Patient Instructions Signature Page Skyler Mcnair Patient (or Guardian) Signature/Date: I have read and understand the instructions given to me by my caregivers. Caregiver/RN/Doctor Signature/Date: The above-named patient and/or guardian has received patient instructions on this date. + Original Patient Signature Page (only) stays with chart. Please make copy for patient.
--- NOTE | 2017-02-04 14:37 | Anesthesiology Progress Note ---
Anesthesia Post Op Note Date & Time Feb 04, 2017 at 14:37 Vital Signs Vital Signs Past 12 Hours Date Time Temp Pulse Resp B/P (MAP) Pulse Ox O2 Delivery O2 Flow Rate FiO2 02/04/17 13:30 36.6 114 20 161/62 (95) 95 Room Air Notes Mental Status: alert / awake / arousable, participated in evaluation Pt Amnestic to Procedure: Yes Nausea / Vomiting: adequately controlled Pain: adequately controlled Airway Patency, RR, SpO2: stable & adequate BP & HR: stable & adequate Hydration State: stable & adequate Anesthetic Complications: no major complications apparent
[2017-02-04 15:00] VITALS: BP 148/90; PULSE 72; O2SAT 98
--- NOTE | 2017-02-05 00:24 | GI REPORT ---
Procedure Date: 02/04/2017 1:26 PM Procedure: Colonoscopy Indications: Abnormal CT of the GI tract Medicines: Propofol total dose 250 mg IV, Lidocaine 40 mg IV Complications: No immediate complications. Estimated Blood Loss: Estimated blood loss was minimal. Procedure: Pre-Anesthesia Assessment: - Prior to the procedure, a History and Physical was performed, and patient medications, allergies and sensitivities were reviewed. The patient's tolerance of previous anesthesia was reviewed. - The risks and benefits of the procedure and the sedation options and risks were discussed with the patient. All questions were answered and informed consent was obtained. After I obtained informed consent, the scope was passed under direct vision. Throughout the procedure, the patient's blood pressure, pulse, and oxygen saturations were monitored continuously. The On-site loaner was introduced through the anus and advanced to the cecum, identified by appendiceal orifice and ileocecal valve. The colonoscopy was performed without difficulty. The patient tolerated the procedure well. The quality of the bowel preparation was good. Findings: A 40 mm polypoid lesion was found in the cecum. The lesion was sessile. No bleeding was present. Mucosa was biopsied with a cold forceps for histology. Estimated blood loss was minimal. A 6 mm polyp was found in the descending colon. The polyp was semi-sessile. The polyp was removed with a hot snare. Resection and retrieval were complete. Estimated blood loss: none. Internal hemorrhoids were found during endoscopy. The hemorrhoids were moderate. A few diverticula were found in the recto-sigmoid colon. Impression: - Polypoid lesion in the cecum. Biopsied. - One 6 mm polyp in the descending colon, removed with a hot snare. Resected and retrieved. - Internal hemorrhoids. - Diverticulosis in the recto-sigmoid colon. Recommendation: - Discharge patient to home (ambulatory). - Continue present medications. - Await pathology results. - Return to primary care physician PRN. Presley Gilbert M.D. Presley Gilbert MD 02/04/2017 2:25:51 PM This report has been signed electronically. Note Initiated On: 02/04/2017 1:26 PM I attest to the content of the Intraoperative Record and orders documented therein, exceptions below
== END | disposition home or self-care (01) ==
LOC: C.GI 12:35
PROVIDERS: ATTEND Internal Medicine Gastroenterology
DX: D12.4 Benign neoplasm of descending colon (principal); K64.8 Other hemorrhoids; K57.90 Diverticulosis of intestine, part unspecified, without perforation or abscess without bleeding; E11.9 Type 2 diabetes mellitus without complications; E03.9 Hypothyroidism, unspecified; G47.33 Obstructive sleep apnea (adult) (pediatric); Z80.0 Family history of malignant neoplasm of digestive organs

== ENCOUNTER 2017-03-05 17:06 | Observation (INO) | payer BC ==
[~2017-03-05] VITALS: Ht 177.8 cm; Wt 83.1 kg
[~2017-03-05 17:06] MED LIST changes: -ATROPINE SULFATE 0.1 MG/ML 5ML SYR IV PRN; -EpHEDrine SULFATE INJ 50 MG/ML AMP IV PRN; -LIDOCAINE HCL 2% 2 ML VIAL (20MG/ML) ONE; -PROPOFOL IV EMULSION 10 MG/ML 20 ML VIAL IV ONE
[2017-03-05] MEDS ORDERED: SODIUM CHLORIDE 0.9% 1000ML 1,000 ML IV STA (17:31)
[2017-03-05] MEDS ORDERED: CHOL4POW12 PO ×2 (17:46)
[2017-03-05] MEDS ORDERED: SYN137 PO ×2 (17:46)
--- NOTE | 2017-03-05 17:53 | DIAGNOSTIC IMAGING REPORT ---
CHEST ONE VIEW PORTABLE CLINICAL HISTORY: 86 years-old Male presenting with EVALUATE WEAKNESS. TECHNIQUE: Portable upright AP view of the chest was obtained. COMPARISON: 10/01/2016. FINDINGS: Atherosclerosis of aortic arch. Cardiac silhouette mildly enlarged, unchanged. Mildly prominent pulmonary vasculature similar to prior. Lungs and pleural spaces clear. Osseous structures normal. Upper abdomen normal. IMPRESSION: 1. Cardiomegaly with possible volume overload. No convincing evidence of acute cardiopulmonary disease. Electronically signed by: Juniro Oconnor M.D. 03/05/2017 5:52 PM Dictated Date/Time: 03/05/2017 5:50 PM
[2017-03-05 18:10] LABS: INR 1.1 (0.9-1.1); PROTHROMBIN TIME (PATIENT) 11.4 SECONDS (9.0-12.0)
[2017-03-05 18:23] LABS: HEMATOCRIT 29.5 % (42-52); MEAN CORPUSCULAR HEMOGLOBIN 26.5 pg (25-34); MEAN CORPUSCULAR HGB CONC 30.8 g/dl (32-36); PLATELET COUNT 123 K/uL (130-400); RED BLOOD COUNT 3.43 M/uL (4.7-6.1); WHITE BLOOD COUNT 6.88 K/uL (4.8-10.8)
[2017-03-05 18:24] LABS: BASO % 0.3 %; BASO ABS # 0.02 K/uL (0-0.2); COMPLETE YES; IG% 0.3 %; LARGE PLATELETS 1+; LYMPH % 10.8 %; LYMPH ABS # 0.74 K/uL (1.2-3.4); MONO % 10.3 %; NEUT % 77.3 %; PLT ESTIMATE DECREASED
[2017-03-05 18:26] LABS: BUN/CREATININE RATIO 14.2 (10-20); CALCIUM 8.3 mg/dl (8.5-10.1); CREATININE 1.24 mg/dl (0.60-1.40); MAGNESIUM 1.9 mg/dl (1.8-2.4); POTASSIUM 4.3 mmol/L (3.5-5.1)
[2017-03-05 18:30] LABS: CKMB/CK RATIO 2.8 (0-3.0); THYROID STIMULATING HORMONE 4.81 uIu/ml (0.300-4.500)
[2017-03-05 18:34] LABS: URINE APPEARANCE CLEAR (CLEAR); URINE BILIRUBIN NEG (NEG); URINE COLOR ORANGE; URINE EPITHELIAL CELL AUTO 0-5 /lpf (0-5); URINE NITRITE NEG (NEG); URINE PH 5.5 (4.5-7.5); URINE SPECIFIC GRAVITY 1.022 (1.000-1.030); UROBILINOGEN NEG (NEG)
[2017-03-05 18:35] LABS: MANUAL MICROSCOPIC REQUIRED? NO; REVIEW REQ? NO
--- NOTE | 2017-03-05 18:36 | EMERGENCY ROOM VISIT NOTE ---
History Report prepared by Brock: Oneyda Lucio Under the Supervision of: Dr. Khang Kearney M.D. First contact with patient: 17:17 Chief Complaint: DIZZY Stated Complaint: COLD,SHAKING,DIZZY,CHEST PAIN-IS DIABETIC Nursing Triage Summary: Patient states he was walking the mall and "had a spell, I just ran out of steam", took him to a restaurant and had orange juice, water and jerry crackers with Peanut butter. Pt has tremors in triage, state not usually shakey. States he feels tired, cold and has pain in shoulder and and back and side, left. History of Present Illness The patient is a 86 year old male who presents to the Emergency Room with complaints of sudden dizziness beginning today. The patient states that he was walking to the mall when he suddenly felt dizzy. He states that he was then given orange juice, water, and jerry crackers with peanut butter. The patient also reports having chest pain and the chills. He denies a prior history of heart problems. His family reports that the patient usually does not tremor like he currently is. He reports that he has been treated at the wound clinic for lower extremity edema. His family states that the patient has a history of primary sclerosis cholangitis. He reports that his blood sugar was high this morning. The patient denies any recent urinary or prostate issues. Pt denies LOC, headache, fevers, visual changes, neck pain, breathing difficulties, nausea , vomiting, abdominal pain, back pain, melena, hematochezia, urinary symptoms, numbness, lymphadenopathy, rash, or other complaints. Source of History: patient, family Onset: today Position: other (global) Quality: other (dizziness) Timing: other (sudden ) Associated Symptoms: + chills, + chest pain, No fevers Review of Systems See HPI for pertinent positives and negatives. A total of ten systems were reviewed and were otherwise negative. 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 (14) Thrombocytopenia Family History Diabetes mellitus FHx: gallbladder disease Social History Smoking Status: Never Smoker Drug Use: none Marital Status: Housing Status: lives with significant other Occupation Status: retired Current/Historical Medications Scheduled Furosemide (Lasix), 20 MG PO QAM Hydroxyzine HCl (Hydroxyzine HCl), 10 MG PO TID Insulin Aspart 70/30 (Novolog Mix 70/30), 28 UNITS SC QAM Insulin Aspart 70/30 (Novolog Mix 70/30), 18 UNITS SC QPM Levothyroxine Sodium (Levothyroxine Sodium), 137 MG PO DAILY Omeprazole (Prilosec), 20 MG PO QAM Paroxetine Hcl (Paxil), 30 MG PO HS Potassium Chloride (Micro-K Ext Rel), 10 MEQ PO QAM Ursodiol (Actigall), 300 MG PO TID Miscellaneous Medications Cholestyramine (Questran) Allergies Coded Allergies: Latex (Verified Allergy, Intermediate, ERRYTHEMA/BLISTERS, 03/05/17) Sulfa Drugs (Verified Allergy, Unknown, HIVES, 03/05/17) Acetaminophen (Verified Adverse Reaction, Unknown, NOT TO HAVE ANY DUE TO BILIARY ISSUES, 03/05/17) Physical Exam Vital Signs Date Time Temp Pulse Resp B/P (MAP) Pulse Ox O2 Delivery O2 Flow Rate FiO2 03/05/17 20:05 38.1 03/05/17 19:35 83 18 130/59 97 Room Air 03/05/17 17:35 Room Air 03/05/17 17:32 87 03/05/17 17:17 36.8 82 18 164/75 98 Room Air Physical Exam GENERAL: Awake, alert, dyspneic-appearing, mild distress, tremulous HENT: Normocephalic, atraumatic. Oropharynx unremarkable. EYES: Normal conjunctiva. Sclera non-icteric. NECK: Supple. No nuchal rigidity. FROM. No JVD. RESPIRATORY: Clear to auscultation. CARDIAC: Regular rate, normal rhythm. Extremities warm and well perfused. Pulses equal. ABDOMEN: Soft, non-distended. No tenderness to palpation. No rebound or guarding. No masses. RECTAL: Deferred. MUSCULOSKELETAL: Chest examination reveals no tenderness. The back is symmetrical on inspection without obvious abnormality. There is no CVA tenderness to palpation. No joint edema. LOWER EXTREMITIES: Calves are equal size bilaterally and non-tender. 1+ lower extremity edema. No discoloration. NEURO: Normal sensorium. No sensory or motor deficits noted. SKIN: No jaundice noted. Scattered rash on trunk, upper and lower extremities with secondary excoriation. Medical Decision & Procedures ER Provider Diagnostic Interpretation: Radiology results as stated below per my review and radiologist interpretation: CHEST ONE VIEW PORTABLE CLINICAL HISTORY: 86 years-old Male presenting with EVALUATE WEAKNESS. TECHNIQUE: Portable upright AP view of the chest was obtained. COMPARISON: 10/01/2016. FINDINGS: Atherosclerosis of aortic arch. Cardiac silhouette mildly enlarged, unchanged. Mildly prominent pulmonary vasculature similar to prior. Lungs and pleural spaces clear. Osseous structures normal. Upper abdomen normal. IMPRESSION: 1. Cardiomegaly with possible volume overload. No convincing evidence of acute cardiopulmonary disease. Electronically signed by: Junior Oconnor M.D. 03/05/2017 5:52 PM Dictated Date/Time: 03/05/2017 5:50 PM ABD/PELVIS WITHOUT FOR STONE CLINICAL HISTORY: 86 years-old Male presenting with left flank pain, hematuria. TECHNIQUE: Multidetector CT of the abdomen and pelvis was performed without the use of intravenous contrast. IV contrast: None. A dose lowering technique was used consistent with the principles of ALARA (as low as reasonably achievable). COMPARISON: 01/15/2017. CT DOSE (mGy.cm): The estimated cumulative dose is 1353.76 mGy.cm. FINDINGS: Autocad Detailer topogram: Unremarkable. Lung bases: Persistent bandlike opacity and architectural distortion of the right middle lobe likely scarring. The intraventricular blood pool is less dense than adjacent myocardium consistent with anemia. Persistent prominent pericardial lymph nodes, which are pathologically enlarged. No pericardial or pleural effusion. Liver: Normal morphology. Density consistent with hepatic steatosis. Biliary: Persistent mild intrahepatic biliary ductal dilatation most pronounced in the left hepatic lobe, unchanged in severity from prior exam and incompletely characterized in the lack of intravenous contrast. Normal gallbladder. Pancreas: Severe parenchymal atrophy. Spleen: Normal noncontrast appearance. Adrenal glands: Normal noncontrast appearance. Kidneys and ureters: Evidence of medullary nephrocalcinosis. Nonobstructing 3 mm calculus interpolar region of the right kidney. No hydronephrosis. Ureters normal. Bladder: Mild circumferential bladder wall thickening, likely indicating chronic outlet obstruction. Pelvic organs: Prostate enlargement likely secondary to benign prostatic hyperplasia. Bowel: Large stool burden throughout the rectum consistent with constipation. Mild diffuse wall thickening of the colon. No bowel obstruction. Peritoneal cavity: No free fluid or intraperitoneal gas. Extensive retroperitoneal fat stranding. Lymph nodes: Prominent retroperitoneal lymph nodes stable to slightly increased in size from prior exam. Vasculature: Atherosclerosis of the normal caliber abdominal aorta. Abdominal wall: Normal. Musculoskeletal: Degenerative changes of the spine. IMPRESSION: 1. Large stool burden with mild diffuse wall thickening of the colon suggested. This could suggest constipation with developing stercoral colitis. 2. Diffuse retroperitoneal fat stranding is of uncertain etiology. Differential considerations include stercoral colitis, pancreatitis, or reactive secondary to the presence of lymphadenopathy among other etiologies. 3. Stable to slight interval worsening of diffuse lymphadenopathy. 4. Anemia. 5. Persistent intrahepatic biliary ductal dilatation, which is of unclear etiology, possibly due to a stricture though incompletely characterized without intravenous contrast. 6. Nonobstructing right 3 mm calculus. 7. Prostatomegaly with chronic bladder outlet obstruction. Electronically signed by: Junior Oconnor M.D. 03/05/2017 7:31 PM Dictated Date/Time: 03/05/2017 7:18 PM Laboratory Results 03/05/17 17:45 Red Blood Count 3.43, Mean Corpuscular Volume 86.0, Mean Corpuscular Hemoglobin 26.5, Mean Corpuscular Hemoglobin Concent 30.8, Neutrophils (%) (Auto) 77.3, Lymphocytes (%) (Auto) 10.8, Monocytes (%) (Auto) 10.3, Eosinophils (%) (Auto) 1.0, Basophils (%) (Auto) 0.3, Neutrophils # (Auto) 5.32, Lymphocytes # (Auto) 0.74, Monocytes # (Auto) 0.71, Eosinophils # (Auto) 0.07, Basophils # (Auto) 0.02 03/05/17 17:45 Test 03/05/17 17:21 03/05/17 17:45 03/05/17 17:51 03/05/17 17:56 Bedside Glucose 343 mg/dl (70-99) White Blood Count 6.88 K/uL (4.8-10.8) Red Blood Count 3.43 M/uL (4.7-6.1) Hemoglobin 9.1 g/dL (14.0-18.0) Hematocrit 29.5 % (42-52) Mean Corpuscular Volume 86.0 fL (80-100) Mean Corpuscular Hemoglobin 26.5 pg (25-34) Mean Corpuscular Hemoglobin Concent 30.8 g/dl (32-36) Platelet Count 123 K/uL (130-400) Neutrophils (%) (Auto) 77.3 % Lymphocytes (%) (Auto) 10.8 % Monocytes (%) (Auto) 10.3 % Eosinophils (%) (Auto) 1.0 % Basophils (%) (Auto) 0.3 % Neutrophils # (Auto) 5.32 K/uL (1.4-6.5) Lymphocytes # (Auto) 0.74 K/uL (1.2-3.4) Monocytes # (Auto) 0.71 K/uL (0.11-0.59) Eosinophils # (Auto) 0.07 K/uL (0-0.5) Basophils # (Auto) 0.02 K/uL (0-0.2) RDW Standard Deviation 60.2 fL (36.4-46.3) RDW Coefficient of Variation 19.3 % (11.5-14.5) Immature Granulocyte % (Auto) 0.3 % Immature Granulocyte # (Auto) 0.02 K/uL (0.00-0.02) Platelet Estimate DECREASED Large Platelets 1+ Prothrombin Time 11.4 SECONDS (9.0-12.0) Prothromb Time International Ratio 1.1 (0.9-1.1) Activated Partial Thromboplast Time 26.9 SECONDS (21.0-31.0) Partial Thromboplastin Ratio 1.0 Anion Gap 7.0 mmol/L (3-11) Est Creatinine Clear Calc Drug Dose 43.3 ml/min Estimated GFR () 60.2 Estimated GFR (Non- 51.9 BUN/Creatinine Ratio 14.2 (10-20) Calcium Level 8.3 mg/dl (8.5-10.1) Magnesium Level 1.9 mg/dl (1.8-2.4) Total Bilirubin 0.7 mg/dl (0.2-1) Direct Bilirubin 0.3 mg/dl (0-0.2) Aspartate Amino Transf (AST/SGOT) 52 U/L (15-37) Alanine Aminotransferase (ALT/SGPT) 40 U/L (12-78) Alkaline Phosphatase 303 U/L (45-117) Total Creatine Kinase 87 U/L (39-308) Creatine Kinase MB 2.4 ng/ml (0.5-3.6) Creatine Kinase MB Ratio 2.8 (0-3.0) Total Protein 8.8 gm/dl (6.4-8.2) Albumin 2.5 gm/dl (3.4-5.0) Lipase 30 U/L (73-393) Beta-Hydroxybutyric Acid 0.89 mg/dL (0.2-2.81) Thyroid Stimulating Hormone (TSH) 4.810 uIu/ml (0.300-4.500) Bedside Troponin I < 0.030 ng/ml (0-0.045) Bedside Lactic Acid Venous 2.78 mmol/L (0.90-1.70) Test 03/05/17 18:15 Urine Color ORANGE Urine Appearance CLEAR (CLEAR) Urine pH 5.5 (4.5-7.5) Urine Specific [place] 1.022 (1.000-1.030) Urine Protein NEG (NEG) Urine Glucose (UA) 3+ (NEG) Urine Ketones NEG (NEG) Urine Occult Blood 3+ (NEG) Urine Nitrite NEG (NEG) Urine Bilirubin NEG (NEG) Urine Urobilinogen NEG (NEG) Urine Leukocyte Esterase NEG (NEG) Urine WBC (Auto) 1-5 /hpf (0-5) Urine RBC (Auto) >30 /hpf (0-4) Urine Hyaline Casts (Auto) 0 /lpf (0-5) Urine Epithelial Cells (Auto) 0-5 /lpf (0-5) Urine Bacteria (Auto) NEG (NEG) Laboratory results reviewed by me Medications Administered Medications (Trade) Dose Ordered Sig/Santhosh Route Start Time Stop Time Status Last Admin Dose Admin Sodium Chloride 1,000 ml @ 125 mls/hr Q8H STAT IV 03/05/17 17:31 17 01:30 03/05/17 18:00 125 MLS/HR Ceftriaxone Sodium (Rocephin Inj) 1 gm NOW STAT IV 03/05/17 19:59 03/05/17 20:00 DC 03/05/17 20:12 1 GM Ibuprofen (Advil Tab) 400 mg NOW STAT PO 03/05/17 19:59 03/05/17 20:00 DC 03/05/17 20:12 400 MG Cholestyramine Resin (Questran Powder Light) 4 gm BID@10,22 PO 03/05/17 22:00 04/04/17 21:59 03/05/17 21:32 4 GM ECG Indication: weakness (dizziness ) Rate (beats per minute): 83 Rhythm: sinus with SA Findings: nonspecific-ST abn, PVC, RBBB (incomplete ) ED Course 1717: The patient was evaluated in room B2. A complete history and physical exam was performed. 1730: Ordered Sodium Chloride 1,000 ml @ 125 mls/hr IV. 1799: I checked on the patient and he is feeling better. 1901: I reassessed the patient and he is feeling better. 1953: I reassessed the patient and he developed a fever, so I will order Rocephin. 1958: Ordered Ibuprofen 400 mg PO, Rocephin Inj 1 gm IV. 2005: Discussed the patient's case with Dr. Moore. The patient will be evaluated for further treatment and disposition. 2036: I checked on the patient again and he is feeling much better. 2044: Upon reexamination, the patient was resting. I discussed the test results and treatment plan with him. The patient will be evaluated for further management. Medical Decision Triage Nursing notes reviewed. The patient's presentation and history were concerning for weakness and chest pain. Etiologies such as metabolic, infection, hypo/hyperglycemia, electrolyte abnormalities, cardiac sources, intracerebral event, toxicologic, neurologic, as well as others were entertained. The patient was evaluated immediately upon arrival. ECG was performed and revealed no evidence of acute ischemic change. A point of care troponin was normal. The patient had hyperglycemia on bedside glucose measurement. He had blood work and imaging performed. The patient had a slight elevation of his serum lactate. He was gently hydrated. CT imaging did not reveal any evidence of ureterolithiasis. The patient was found to have hematuria. He did not have any bowel symptoms to suggest a colitis. On reassessment the patient was found to have developed a temperature of 38.1. Because of this he had a dose of IV Rocephin given. I consulted with internal medicine, Dr. Marcus Wilson . The patient was evaluated and admitted for further treatment. Medication Reconcilliation Current Medication List: was personally reviewed by me Blood Pressure Screening Patient's blood pressure: Elevated blood pressure Blood pressure disposition: Referred to PCP (will be monitored by hospitalist ) Consults Time Called: 2005 Consulting Physician: Dr. Moore-Resident Returned Call: 2005 Discussed the patient's case with Dr. Moore. The patient will be evaluated for further treatment and disposition. Impression Primary Impression: Left sided chest pain Additional Impressions: Febrile illness Hematuria Scribe Attestation The scribe's documentation has been prepared under my direction and personally reviewed by me in its entirety. I confirm that the note above accurately reflects all work, treatment, procedures, and medical decision making performed by me. Departure Information Dispostion Being Evaluated By Hospitalist Referrals Millicent Dutton C.R.N.P. (PCP) Patient Instructions My [facility] Problem Qualifiers
[2017-03-05 18:38] LABS: BETA-HYDROXYBUTYRATE 0.89 mg/dL (0.2-2.81)
--- NOTE | 2017-03-05 19:33 | DIAGNOSTIC IMAGING REPORT ---
ABD/PELVIS WITHOUT FOR STONE CLINICAL HISTORY: 86 years-old Male presenting with left flank pain, hematuria. TECHNIQUE: Multidetector CT of the abdomen and pelvis was performed without the use of intravenous contrast. IV contrast: None. A dose lowering technique was used consistent with the principles of ALARA (as low as reasonably achievable). COMPARISON: 01/15/2017. CT DOSE (mGy.cm): The estimated cumulative dose is 1353.76 mGy.cm. FINDINGS: Freight Loading Supervisor topogram: Unremarkable. Lung bases: Persistent bandlike opacity and architectural distortion of the right middle lobe likely scarring. The intraventricular blood pool is less dense than adjacent myocardium consistent with anemia. Persistent prominent pericardial lymph nodes, which are pathologically enlarged. No pericardial or pleural effusion. Liver: Normal morphology. Density consistent with hepatic steatosis. Biliary: Persistent mild intrahepatic biliary ductal dilatation most pronounced in the left hepatic lobe, unchanged in severity from prior exam and incompletely characterized in the lack of intravenous contrast. Normal gallbladder. Pancreas: Severe parenchymal atrophy. Spleen: Normal noncontrast appearance. Adrenal glands: Normal noncontrast appearance. Kidneys and ureters: Evidence of medullary nephrocalcinosis. Nonobstructing 3 mm calculus interpolar region of the right kidney. No hydronephrosis. Ureters normal. Bladder: Mild circumferential bladder wall thickening, likely indicating chronic outlet obstruction. Pelvic organs: Prostate enlargement likely secondary to benign prostatic hyperplasia. Bowel: Large stool burden throughout the rectum consistent with constipation. Mild diffuse wall thickening of the colon. No bowel obstruction. Peritoneal cavity: No free fluid or intraperitoneal gas. Extensive retroperitoneal fat stranding. Lymph nodes: Prominent retroperitoneal lymph nodes stable to slightly increased in size from prior exam. Vasculature: Atherosclerosis of the normal caliber abdominal aorta. Abdominal wall: Normal. Musculoskeletal: Degenerative changes of the spine. IMPRESSION: 1. Large stool burden with mild diffuse wall thickening of the colon suggested. This could suggest constipation with developing stercoral colitis. 2. Diffuse retroperitoneal fat stranding is of uncertain etiology. Differential considerations include stercoral colitis, pancreatitis, or reactive secondary to the presence of lymphadenopathy among other etiologies. 3. Stable to slight interval worsening of diffuse lymphadenopathy. 4. Anemia. 5. Persistent intrahepatic biliary ductal dilatation, which is of unclear etiology, possibly due to a stricture though incompletely characterized without intravenous contrast. 6. Nonobstructing right 3 mm calculus. 7. Prostatomegaly with chronic bladder outlet obstruction. Electronically signed by: Junior Oconnor M.D. 03/05/2017 7:31 PM Dictated Date/Time: 03/05/2017 7:18 PM
[2017-03-05] MEDS ORDERED: IBUPROFEN 200 MG TAB PO STA (19:59)
[2017-03-05] MEDS ORDERED: CEFTRIAXONE SOD INJ 1 GM ADDVIAL IV STA (19:59)
[2017-03-05] MEDS: CHOLESTYRAMINE LIGHT 4 GM PKT PO SCH (21:32)
--- NOTE | 2017-03-05 22:04 | History and Physical ---
History & Physical Date & Time of Service: Mar 05, 2017 at 21:08 Chief Complaint: Cold,Shaking,Dizzy,Chest Pain-Is Diabetic Primary Care Physician: Millicent Dutton C.R.N.P. History of Present Illness Source: patient, family, clinic records, hospital records 86M with a PMHx of sclerosing Cholangitis, & chronic LE edema presets with a 2 day history of fevers and chills. He states that he [place] at the mall and felt dizzy. His family didn't have his blood sugar monitor so they kept giving him sugar thinking that it was low blood sugar. Patient states that his belly has been getting bigger for the past few months. He was wearing a compression dressing for LE bilateral edema that was taken off a few days ago, his legs are swollen and he is itching them. Patient takes cholestyramine for the itching. He also complaining of RUQ pain that comes and goes that started this afternoon. Patient in the room denies chest pain, denies exertional shortness of breath but does state he has been peeing more frequently. Patient has a biopsy scheduled with Dr Beckwith for a lymph node in his groin. In the ER patient was febrile to 38.1. ROS: Patient has chronic unsteady gait and uses a cane to ambulate. Patient denies any diarrhea. + Increased urinary frequency. +chills, no vomiting. + skin itchiness (chronic). 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 (7) sclerosing colangitis Status: Chronic (8) Thrombocytopenia Status: Chronic Family History Diabetes mellitus FHx: gallbladder disease Social History Smoking Status: Never Smoker Smokeless Tobacco Use: No Alcohol Use: none Drug Use: none Marital Status: Housing status: lives with family Occupational Status: retired Immunizations History of Influenza Vaccine: N/A History of Tetanus Vaccine?: Yes History of Pneumococcal: Unknown History of Hepatitis B Vaccine: Yes Multi-Drug Resistant Organisms History of MDRO: No Allergies Coded Allergies: Latex (Verified Allergy, Intermediate, ERRYTHEMA/BLISTERS, 03/05/17) Sulfa Drugs (Verified Allergy, Unknown, HIVES, 03/05/17) Acetaminophen (Verified Adverse Reaction, Unknown, NOT TO HAVE ANY DUE TO BILIARY ISSUES, 03/05/17) Home Medications Scheduled Furosemide (Lasix), 20 MG PO QAM Hydroxyzine HCl (Hydroxyzine HCl), 10 MG PO TID Insulin Aspart 70/30 (Novolog Mix 70/30), 28 UNITS SC QAM Insulin Aspart 70/30 (Novolog Mix 70/30), 18 UNITS SC QPM Levothyroxine Sodium (Levothyroxine Sodium), 137 MG PO DAILY Omeprazole (Prilosec), 20 MG PO QAM Paroxetine Hcl (Paxil), 30 MG PO HS Potassium Chloride (Micro-K Ext Rel), 10 MEQ PO QAM Ursodiol (Actigall), 300 MG PO TID Miscellaneous Medications Cholestyramine (Questran) Review of Systems Constitutional: + chills Respiratory: No cough, No sputum, No shortness of breath, No dyspnea on exertion Cardiovascular: + edema, No chest pain, No orthopnea, No palpitations Abdomen: + pain (RUQ), + constipation, No vomiting, No diarrhea Musculoskeletal: No muscle pain Genitourinary - Male: + urinary frequency, + urinary urgency, No hematuria, No dysuria, No urinary hesitancy, No urinary retention Physical Exam Vital Signs Date Time Temp Pulse Resp B/P (MAP) Pulse Ox O2 Delivery O2 Flow Rate FiO2 03/05/17 20:05 38.1 03/05/17 19:35 83 18 130/59 97 Room Air 03/05/17 17:35 Room Air 03/05/17 17:32 87 03/05/17 17:17 36.8 82 18 164/75 98 Room Air General Appearance: WD/WN ENT: normal ENT inspection Neck: supple Respiratory/Chest: chest non-tender, lungs clear, normal breath sounds, no respiratory distress, no accessory muscle use Cardiovascular: regular rate, rhythm, no gallop, no JVD, no murmur, normal peripheral pulses Abdomen/GI: + pertinent finding (large abdomen, no ascitic, but tender to deep palpation in the RUQ, no gaurding, abdomen does look large and out of proportion to the rest of the body. ) Extremities/Musculoskelatal: + pertinent finding (Bilateral pedal edema, thighs and calves are tender to palpation bilaterally - this is a chronic issue. 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 ) Diagnostics Laboratory Results Results Past 24 Hours Test 03/05/17 17:21 03/05/17 17:45 03/05/17 17:51 03/05/17 17:56 Range/Units Bedside Glucose 343 70-99 mg/dl White Blood Count 6.88 4.8-10.8 K/uL Red Blood Count 3.43 4.7-6.1 M/uL Hemoglobin 9.1 14.0-18.0 g/dL Hematocrit 29.5 42-52 % Mean Corpuscular Volume 86.0 80-100 fL Mean Corpuscular Hemoglobin 26.5 25-34 pg Mean Corpuscular Hemoglobin Concent 30.8 32-36 g/dl Platelet Count 123 130-400 K/uL Neutrophils (%) (Auto) 77.3 % Lymphocytes (%) (Auto) 10.8 % Monocytes (%) (Auto) 10.3 % Eosinophils (%) (Auto) 1.0 % Basophils (%) (Auto) 0.3 % Neutrophils # (Auto) 5.32 1.4-6.5 K/uL Lymphocytes # (Auto) 0.74 1.2-3.4 K/uL Monocytes # (Auto) 0.71 0.11-0.59 K/uL Eosinophils # (Auto) 0.07 0-0.5 K/uL Basophils # (Auto) 0.02 0-0.2 K/uL RDW Standard Deviation 60.2 36.4-46.3 fL RDW Coefficient of Variation 19.3 11.5-14.5 % Immature Granulocyte % (Auto) 0.3 % Immature Granulocyte # (Auto) 0.02 0.00-0.02 K/uL Platelet Estimate DECREASED Large Platelets 1+ Prothrombin Time 11.4 9.0-12.0 SECONDS Prothromb Time International Ratio 1.1 0.9-1.1 Activated Partial Thromboplast Time 26.9 21.0-31.0 SECONDS Partial Thromboplastin Ratio 1.0 Sodium Level 134 136-145 mmol/L Potassium Level 4.3 3.5-5.1 mmol/L Chloride Level 103 98-107 mmol/L Carbon Dioxide Level 24 21-32 mmol/L Anion Gap 7.0 3-11 mmol/L Blood Urea Nitrogen 18 7-18 mg/dl Creatinine 1.24 0.60-1.40 mg/dl Est Creatinine Clear Calc Drug Dose 43.3 ml/min Estimated GFR () 60.2 Estimated GFR (Non- 51.9 BUN/Creatinine Ratio 14.2 10-20 Random Glucose 352 70-99 mg/dl Calcium Level 8.3 8.5-10.1 mg/dl Magnesium Level 1.9 1.8-2.4 mg/dl Total Bilirubin 0.7 0.2-1 mg/dl Direct Bilirubin 0.3 0-0.2 mg/dl Aspartate Amino Transf (AST/SGOT) 52 15-37 U/L Alanine Aminotransferase (ALT/SGPT) 40 12-78 U/L Alkaline Phosphatase 303 45-117 U/L Total Creatine Kinase 87 39-308 U/L Creatine Kinase MB 2.4 0.5-3.6 ng/ml Creatine Kinase MB Ratio 2.8 0-3.0 Total Protein 8.8 6.4-8.2 gm/dl Albumin 2.5 3.4-5.0 gm/dl Lipase 30 73-393 U/L Beta-Hydroxybutyric Acid 0.89 0.2-2.81 mg/dL Thyroid Stimulating Hormone (TSH) 4.810 0.300-4.500 uIu/ml Bedside Troponin I < 0.030 0-0.045 ng/ml Bedside Lactic Acid Venous 2.78 0.90-1.70 mmol/L Test 03/05/17 18:15 Range/Units Urine Color ORANGE Urine Appearance CLEAR CLEAR Urine pH 5.5 4.5-7.5 Urine Specific [place] 1.022 1.000-1.030 Urine Protein NEG NEG Urine Glucose (UA) 3+ NEG Urine Ketones NEG NEG Urine Occult Blood 3+ NEG Urine Nitrite NEG NEG Urine Bilirubin NEG NEG Urine Urobilinogen NEG NEG Urine Leukocyte Esterase NEG NEG Urine WBC (Auto) 1-5 0-5 /hpf Urine RBC (Auto) >30 0-4 /hpf Urine Hyaline Casts (Auto) 0 0-5 /lpf Urine Epithelial Cells (Auto) 0-5 0-5 /lpf Urine Bacteria (Auto) NEG NEG Microbiology Results 03/05/17 Blood Culture, Received Pending 03/05/17 Blood Culture, Received Pending 03/05/17 Urine Culture, Received Pending Diagnostic Radiology ABD/PELVIS WITHOUT FOR STONE CLINICAL HISTORY: 86 years-old Male presenting with left flank pain, hematuria. TECHNIQUE: Multidetector CT of the abdomen and pelvis was performed without the use of intravenous contrast. IV contrast: None. A dose lowering technique was used consistent with the principles of ALARA (as low as reasonably achievable). COMPARISON: 01/15/2017. CT DOSE (mGy.cm): The estimated cumulative dose is 1353.76 mGy.cm. 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 Lung bases: Persistent bandlike opacity and architectural distortion of the right middle lobe likely scarring. The intraventricular blood pool is less dense than adjacent myocardium consistent with anemia. Persistent prominent pericardial lymph nodes, which are pathologically enlarged. No pericardial or pleural effusion. Liver: Normal morphology. Density consistent with hepatic steatosis. Biliary: Persistent mild intrahepatic biliary ductal dilatation most pronounced in the left hepatic lobe, unchanged in severity from prior exam and incompletely characterized in the lack of intravenous contrast. Normal gallbladder. Pancreas: Severe parenchymal atrophy. Spleen: Normal noncontrast appearance. Adrenal glands: Normal noncontrast appearance. Kidneys and ureters: Evidence of medullary nephrocalcinosis. Nonobstructing 3 mm calculus interpolar region of the right kidney. No hydronephrosis. Ureters normal. Bladder: Mild circumferential bladder wall thickening, likely indicating chronic outlet obstruction. Pelvic organs: Prostate enlargement likely secondary to benign prostatic hyperplasia. Bowel: Large stool burden throughout the rectum consistent with constipation. Mild diffuse wall thickening of the colon. No bowel obstruction. Peritoneal cavity: No free fluid or intraperitoneal gas. Extensive retroperitoneal fat stranding. Lymph nodes: Prominent retroperitoneal lymph nodes stable to slightly increased in size from prior exam. Vasculature: Atherosclerosis of the normal caliber abdominal aorta. Abdominal wall: Normal. Musculoskeletal: Degenerative changes of the spine. IMPRESSION: 1. Large stool burden with mild diffuse wall thickening of the colon suggested. This could suggest constipation with developing stercoral colitis. 2. Diffuse retroperitoneal fat stranding is of uncertain etiology. Differential considerations include stercoral colitis, pancreatitis, or reactive secondary to the presence of lymphadenopathy among other etiologies. 3. Stable to slight interval worsening of diffuse lymphadenopathy. 4. Anemia. 5. Persistent intrahepatic biliary ductal dilatation, which is of unclear etiology, possibly due to a stricture though incompletely characterized without intravenous contrast. 6. Nonobstructing right 3 mm calculus. 7. Prostatomegaly with chronic bladder outlet obstruction. CHEST ONE VIEW PORTABLE CLINICAL HISTORY: 86 years-old Male presenting with EVALUATE WEAKNESS. TECHNIQUE: Portable upright AP view of the chest was obtained. COMPARISON: 10/01/2016. FINDINGS: Atherosclerosis of aortic arch. Cardiac silhouette mildly enlarged, unchanged. Mildly prominent pulmonary vasculature similar to prior. Lungs and pleural spaces clear. Osseous structures normal. Upper abdomen normal. IMPRESSION: 1. Cardiomegaly with possible volume overload. No convincing evidence of acute cardiopulmonary disease. MRCP CLINICAL HISTORY: 86 years-old Male presenting with abdominal pain, increasing lymphadenopathy, PSC. TECHNIQUE: Multisequence, multiplanar MR imaging of the abdomen was performed without the use of intravenous contrast. IV contrast: None. COMPARISON: CT from 03/05/2017 and MR abdomen from 10/04/2013. FINDINGS: Localizer images: Unremarkable. Lung bases: Lung bases clear. Normal heart size. No pericardial or pleural effusion. Liver: Congenital hypoplasia of the medial segments of the left hepatic lobe. Biliary: Diffusely narrow caliber of the extrahepatic bile duct. The cystic duct is not apparent. Irregular narrowing of right intrahepatic bile ducts. Pathologic dilatation of the left intrahepatic bile ducts with variable stenoses. Normal gallbladder. Pancreas: Severe parenchymal atrophy. Spleen: Enlarged measuring 14.3 cm in maximal transverse dimension. Adrenal glands: Normal noncontrast appearance. Kidneys: Normal noncontrast appearance. No hydronephrosis. Bowel: Normal. No bowel obstruction. Peritoneal cavity: Trace free fluid. The presence of retroperitoneal inflammatory changes better appreciated on recent CT. Lymph nodes: Pathologically enlarged retroperitoneal lymph nodes. Vasculature: Normal noncontrast appearance. Abdominal wall: Normal. Musculoskeletal: Normal. IMPRESSION: 1. Variable intrahepatic biliary ductal dilatation and stenoses consistent with the given diagnosis of primary sclerosing cholangitis. 2. No gross evidence of cirrhosis. 3. Retroperitoneal lymphadenopathy. EKG Sinus rhythm with sinus arrhythmia with occasional Premature ventricular complexes Incomplete right bundle branch block Nonspecific ST abnormality Abnormal ECG When compared with ECG of 24-AUG-2016 18:38, Premature ventricular complexes are now Present Incomplete right bundle branch block has replaced Right bundle branch block Impression Assessment and Plan 86M with a PMHX of LE edema and a h/o primary sclerosing cholangitis p/w worsening fatigue and chills for two days with increased urinary frequency and RUQ pain. He has had no diarrhea. Pt was febrile in the ER with an elevated lactic acid and a hemoglobin around 9.1. UA showed hematuria. CT scan of the Abdo and Pelvis was done without contrast (to rule out stone) that showed enlarging pericardial lymph nodes, mild diffuse wall thickening of the colon and prominent retroperitoneal lymph nodes stable to slightly increased in size from prior exam. MRCP showed variable intrahepatic biliary ductal dilatation and stenoses consistent with the given diagnosis of primary sclerosing cholangitis. Differential include Cholangitis. LE cellulitis and UTI. There is also some pathology responsible for the enlargement of the retroperitoneal lymph nodes. Possible start of Cholangitis H/o primary sclerosing cholangitis. * MRCP showed variable intrahepatic biliary ductal dilatation and stenoses consistent with the given diagnosis of primary sclerosing cholangitis. * AST = 52, ALT = 40, ALP = 303, Lipase =30 * c/w Cholestyramine BID * c/w 300 MG PO TID * Per discussion with Attending this may be the start of a cholangitis flare. * Zosyn IV Day #1. LE Edema 2/2 Cellulitis vs CHF vs Enlarged Lymph nodes * c/w Lasix 20 MG PO QAM * c/w Hydroxyzine HCl 10 MG PO TID for itching. * Last Echo from 2011, EF 60% * Follow up LE Dopplers. * Got Rocephin in the ER, broadening to Zosyn for possible cholangitis, day #1 * Follow up BNP in the AM. Anemia of unknown origin, Production problem vs Loss (Hematuria vs GI) * Pt Hgb was 9.1, his baseline from last year was 12. MCV is normal. * UA showed blood, no nitrites, no WBC, no bacteria. * Patient is on a PPI at home, will increase dose to 40mg BID. * Follow up FOBT, iron panel and B12 level. * Follow up urine cytology (there may be an underlying cancer with the retroperitoneal lymph nodes) KHADAR * Creatinine is 1.24, baseline is around 1.0 * Encourage PO hydration. Hyperglycemia * Elevated Blood sugars likely from family giving sugar thinking pt was hypoglycemic. * Beta hydroxybuteric acid WNL. * Home regimen is (Novolog Mix 70/30), 28 UNITS SC QAM + 18 UNITS SC QPM * Glycemic control consult. * Will get HBA1C in the AM. ID - * Febrile, no WBC count, elevated lactate. * Pt is complaining of increasing urinary frequency. * LE are tender to palpation and edematous. * Blood /Urine cultures pending. * Zosyn as above. * Will trend Lactate in the AM. * f/u MRSA nasal swab. Hypothyroid * TSH was 4.8 (elevated) * c/w Synthroid 137 mcg PO DAILY Depression * c/w Paxil 30 MG PO HS Social - Lives w . Dispo - Obs, Med Surg. Full Code (confirmed with Patient) Attending addendum: I have physically seen this patient, have supervised the medical residents activities, and agree with the H&P unless as otherwise noted. Assessment and Plan: Primary sclerosing cholangitis/retroperitoneal lymphadenopathy-- Presently takes cholestyramine daily, and would increase to twice a day due to symptoms of itching, which are likely a sign of a flareup, even though MRI did not show active inflammation Place on Zosyn IV. Consult gastroenterology Hematuria-- Increased blood and RBCs on micro-, without obvious sign of infection or stone Send urine cytology Follow urine culture and sensitivity Lymphedema/venous insufficiency-- Has recently been on Ria boots Continue Lasix 20 mg by mouth every morning Anemia-- Check iron, TIBC, B12, folic acid, reticulocyte count May be an element of chronic disease Depression/PTSD-- Continue Paxil 30 mg daily at bedtime Hypothyroidism-left Would not change Synthroid dose, continue 137 g daily Level of Care Med/Surg Advanced Directives Existing Advance Directive: No Existing Living Will: No Existing Power of Foil Wrapper: No Resuscitation Status FULL RESUSCITATION VTE Prophylaxis Given or contraindicated: SCD's Resident Involvement: Resident Care Provided Care Provided: Adult Hospital Medicine
--- NOTE | 2017-03-05 22:30 | DIAGNOSTIC IMAGING REPORT ---
MRCP CLINICAL HISTORY: 86 years-old Male presenting with abdominal pain, increasing lymphadenopathy, PSC. TECHNIQUE: Multisequence, multiplanar MR imaging of the abdomen was performed without the use of intravenous contrast. IV contrast: None. COMPARISON: CT from 03/05/2017 and MR abdomen from 10/04/2013. FINDINGS: Localizer images: Unremarkable. Lung bases: Lung bases clear. Normal heart size. No pericardial or pleural effusion. Liver: Congenital hypoplasia of the medial segments of the left hepatic lobe. Biliary: Diffusely narrow caliber of the extrahepatic bile duct. The cystic duct is not apparent. Irregular narrowing of right intrahepatic bile ducts. Pathologic dilatation of the left intrahepatic bile ducts with variable stenoses. Normal gallbladder. Pancreas: Severe parenchymal atrophy. Spleen: Enlarged measuring 14.3 cm in maximal transverse dimension. Adrenal glands: Normal noncontrast appearance. Kidneys: Normal noncontrast appearance. No hydronephrosis. Bowel: Normal. No bowel obstruction. Peritoneal cavity: Trace free fluid. The presence of retroperitoneal inflammatory changes better appreciated on recent CT. Lymph nodes: Pathologically enlarged retroperitoneal lymph nodes. Vasculature: Normal noncontrast appearance. Abdominal wall: Normal. Musculoskeletal: Normal. IMPRESSION: 1. Variable intrahepatic biliary ductal dilatation and stenoses consistent with the given diagnosis of primary sclerosing cholangitis. 2. No gross evidence of cirrhosis. 3. Retroperitoneal lymphadenopathy. Electronically signed by: Junior Oconnor M.D. 03/05/2017 10:29 PM Dictated Date/Time: 03/05/2017 10:18 PM
[2017-03-05] MEDS ORDERED: ALUMINUM/MAGNESIUM/SIMETH (MAALOX MAX) 30 ML UDC PO PRN (23:00)
[2017-03-05] MEDS ORDERED: MAGNESIUM HYDROXIDE SUSP 30 ML UDC PO PRN (23:00)
[2017-03-05] MEDS ORDERED: ONDANSETRON INJ 2 MG/ML 2 ML VIAL IV PRN (23:00)
[2017-03-05] MEDS ORDERED: ACETAMINOPHEN 325 MG TAB PO PRN (23:00)
[2017-03-05] MEDS ORDERED: POLYETHYLENE (MIRALAX) 17 GM PACK PO PRN (23:00)
[2017-03-05] MEDS ORDERED: ZOLPIDEM TARTRATE 5 MG TAB PO PRN ×2 (23:00)
[2017-03-05] MEDS ORDERED: IV FLUIDS COMPLETED PRN (23:15)
[2017-03-05 23:56] VITALS: Ht 177.8 cm; Wt 83.1 kg
[2017-03-06 00:05] VITALS: BP 115/61; PULSE 94; TEMP 37; O2SAT 94
[2017-03-06] MEDS ORDERED: PHARMACY GLYCEMIC MGMT CONSULT PRN (00:28)
[2017-03-06] MEDS ORDERED: PIPERACILL/TAZOBAC IV 3.375 GM in DEXTROSE 5% 100ML IV ONE (00:45)
[2017-03-06] MEDS ORDERED: PIPERACILL/TAZOBAC CONSULT ACTIVE PRN (00:45)
[2017-03-06] MEDS ORDERED: DEXTROSE 50% 50 ML SYR IV PRN (01:15)
[2017-03-06] MEDS ORDERED: GLUCAGON FOR INJ 1 MG VIAL SQ PRN (01:15)
[2017-03-06] MEDS ORDERED: INSULIN 70% ASPART PROTAMINE/30% ASPART SC SCH ×3 (01:15→17:00)
[2017-03-06] MEDS ORDERED: GLUCOSE 10 TABS/TUBE PO PRN (01:15)
[2017-03-06] MEDS ORDERED: GLUCOSE 40% GEL 15 GM TUBE PO PRN (01:15)
[2017-03-06] MEDS: hydrOXYzine HCL 10 MG TAB PO SCH ×2 (01:32→08:30)
[2017-03-06] MEDS ORDERED: INSULIN ASPART 100 UNITS/ML 3 ML PEN SC SCH ×2 (04:00→06:30)
[2017-03-06] MEDS ORDERED: PIPERACILL/TAZOBAC IV 3.375 GM in DEXTROSE 5% 100ML 100 ML IV SCH (06:00)
[2017-03-06] MEDS: PIPERACILL/TAZOBAC IV 3.375 GM in DEXTROSE 5% 100ML IV SCH ×3 (06:01→22:08)
--- NOTE | 2017-03-06 06:48 | DIAGNOSTIC IMAGING REPORT ---
BILATERAL LOWER EXTREMITY VENOUS DOPPLER HISTORY: Leg swelling bilaterally and tender calves COMPARISON STUDY: Venous Doppler 09/09/2016. FINDINGS: There is normal compressibility, flow, and augmentation within the bilateral lower extremity deep venous systems. IMPRESSION: No DVT within the right or left lower extremity. Electronically signed by: Fredo Dietz M.D. 03/06/2017 6:47 AM Dictated Date/Time: 03/06/2017 6:46 AM
[2017-03-06 07:22] VITALS: BP 137/62; PULSE 73; TEMP 36.6; O2SAT 98
[2017-03-06] MEDS ORDERED: PANTOprazole SOD 40 MG TAB PO SCH (08:00)
[2017-03-06 08:04] LABS: HEMATOCRIT 28.7 % (42-52); MEAN CELL VOLUME 85.7 fL (80-100); MEAN CORPUSCULAR HEMOGLOBIN 26.6 pg (25-34); RED BLOOD COUNT 3.35 M/uL (4.7-6.1); WHITE BLOOD COUNT 7.28 K/uL (4.8-10.8)
[2017-03-06 08:18] LABS: ANISOCYTOSIS PRESENT; BASO % 0.4 %; BASO ABS # 0.03 K/uL (0-0.2); COMPLETE YES; EOS % 4.3 %; GIANT PLATELETS 2+; IG% 0.3 %; LYMPH % 21.4 %; LYMPH ABS # 1.56 K/uL (1.2-3.4); MONO % 9.2 %; NEUT % 64.4 %; PLATELET COUNT 113 K/uL (130-400); PLT ESTIMATE DECREASED; TARGET CELLS 1+
[2017-03-06 08:24] LABS: ALB/GLOB RATIO 0.4 (0.9-2); BUN/CREATININE RATIO 15.2 (10-20); CALCIUM 8.1 mg/dl (8.5-10.1); CREATININE 1.12 mg/dl (0.60-1.40); POTASSIUM 3.5 mmol/L (3.5-5.1)
[2017-03-06] MEDS: LEVOTHYROXINE 137 MCG TAB PO SCH (08:31)
[2017-03-06] MEDS: POLYETHYLENE (MIRALAX) 17 GM PACK PO SCH ×2 (08:32→20:16)
[2017-03-06] MEDS: FUROSEMIDE 20 MG TAB PO SCH (08:32)
[2017-03-06] MEDS: URSODIOL 300 MG CAP PO SCH ×3 (08:32→20:16)
[2017-03-06] MEDS: POTASSIUM CHLORIDE 10 MEQ TABCR PO SCH (08:33)
[2017-03-06] MEDS: INSULIN ASPART 100 UNITS/ML 3 ML PEN SC SCH ×4 (09:26→20:19)
[2017-03-06 09:34] LABS: LYME DISEASE AB IGG NEG (NEG); LYME DISEASE AB IGM NEG (NEG)
[2017-03-06 09:47] LABS: ESTIMATED AVERAGE GLUCOSE 186 mg/dl; HA1C FLAG Normal (Normal)
[2017-03-06] MEDS: CHOLESTYRAMINE LIGHT 4 GM PKT PO SCH ×2 (10:37→22:08)
[2017-03-06 10:48] LABS: INFLUENZA A PCR Neg for Influ A (NEG); INFLUENZA B PCR Neg for Influ B (NEG)
--- NOTE | 2017-03-06 11:54 | GASTROINTESTINAL CONSULTATION ---
DATE OF CONSULTATION: 03/06/2017 REASON FOR CONSULTATION: Weakness and abnormal liver tests. 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 The patient has been maintained on Ayla and medication for pruritus. Two days prior to admission, the patient developed weakness and then fevers and chills. Initially, they thought that it was related to hypoglycemia, although his blood sugars have been running high for the last 2 days. He failed to respond to glucose replacement and was brought to the hospital where he was found to be febrile. He is having a little bit of right upper quadrant pain as well. Blood cultures were obtained as well as CT scan, which showed abdominal and pulmonary adenopathy and beading of his bile ducts consistent with sclerosing cholangitis. He was started on IV Zosyn and an MRCP was performed, which showed similar findings. Remarkably, there was no significant ascites present. He is scheduled to get a biopsy of a lymph node in his groin with Dr. Alcaraz scheduled for further evaluation as there is concern that he might have a lymphoma or cholangiocarcinoma. PAST MEDICAL HISTORY: Remarkable for sclerosing cholangitis, idiopathic; anemia; thrombocytopenia; and abdominal and pulmonary adenopathy; also is diabetic. MEDICATIONS: Per list. ALLERGIES: LATEX, SULFA AND ACETAMINOPHEN. FAMILY HISTORY: Positive for gallbladder disease and diabetes. SOCIAL HISTORY: The patient is . He does not smoke, does not drink and lives with his , typically winter in [place]. REVIEW OF SYSTEMS: Positive for extreme fatigue and urinary frequency. Remainder is negative. PHYSICAL EXAMINATION: GENERAL: The patient is very weak and sleepy, but in no acute distress. VITAL SIGNS: Normal. He is currently afebrile. ABDOMEN: Shows a right lower quadrant scar, multiple excoriations from itching his skin. Abdomen is distended and firm, but nontender. IMPRESSION: The patient appears to have cholangitis. Blood cultures and urine cultures are pending at this time. He has been started on IV Zosyn and we will continue to follow him. In the meantime, we will get a CEA, a CA 19-9 and a CA 27-29. I think once his condition stabilizes, I think it may be important to proceed with a lymph node biopsy as previously scheduled as an outpatient. We will continue to follow the patient during his hospital stay.
--- NOTE | 2017-03-06 13:36 | Family Medicine Progress Note ---
Progress Note Date of Service Mar 06, 2017. Subjective Pt evaluation today including: conversation w/ patient, physical exam, chart review, lab review, review of studies, review of inpatient medication list Pain: 0/10 PO Intake: WNL Voiding: no voiding problems Patient is very lethargic this morning after his dose of vistiril. The patient responds appropriately and oriented x 3 however would drowse off during the interview. He denies any pain at this time Constitutional: No fever Eyes: No worsening of vision ENT: No hearing loss Respiratory: No cough, No sputum, No wheezing, No shortness of breath, No dyspnea on exertion Cardiovascular: No chest pain Abdomen: No pain, No nausea, No vomiting, No diarrhea, No constipation, No GI bleeding Musculoskeletal: No joint pain, No muscle pain Male : + urinary frequency Neurologic: + weakness, + balance problems Psychiatric: No depression symptoms Heme: No abnormal bleeding/bruising Endo: No fatigue Medications Medications Administered Medications (Trade) Dose Ordered Sig/Santhosh Route Start Time Stop Time Status Last Admin Dose Admin Sodium Chloride 1,000 ml @ 125 mls/hr Q8H STAT IV 03/05/17 17:31 03/06/17 00:31 DC 03/05/17 18:00 125 MLS/HR Ceftriaxone Sodium (Rocephin Inj) 1 gm NOW STAT IV 03/05/17 19:59 03/05/17 20:00 DC 03/05/17 20:12 1 GM Ibuprofen (Advil Tab) 400 mg NOW STAT PO 03/05/17 19:59 03/05/17 20:00 DC 03/05/17 20:12 400 MG Cholestyramine Resin (Questran Powder Light) 4 gm BID@10,22 PO 03/05/17 22:00 04/04/17 21:59 03/06/17 10:37 4 GM Furosemide (Lasix Tab) 20 mg QAM PO 03/06/17 08:00 04/05/17 08:59 03/06/17 08:32 20 MG Hydroxyzine HCl (Vistaril Tab) 10 mg TID PO 03/06/17 08:00 03/06/17 10:42 DC 03/06/17 08:30 10 MG Levothyroxine Sodium (Synthroid Tab) 137 mcg DAILYBB PO 03/06/17 06:30 04/05/17 06:29 03/06/17 08:31 137 MCG Potassium Chloride (Klor-Con M10) 10 meq QAM PO 03/06/17 08:00 04/05/17 08:59 03/06/17 08:33 10 MEQ Ursodiol (Actigall Cap) 300 mg TID PO 03/06/17 08:00 04/05/17 08:59 03/06/17 08:32 300 MG Pantoprazole Sodium (Protonix Tab) 40 mg BID PO 03/06/17 08:00 03/06/17 10:42 DC 03/06/17 08:33 40 MG Piperacillin Sod/ Tazobactam Sod 3.375 gm/Dextrose 115 ml @ 230 mls/hr NOW ONCE IV 03/06/17 00:45 03/06/17 01:14 DC 03/06/17 01:36 230 MLS/HR Piperacillin Sod/ Tazobactam Sod 3.375 gm/Dextrose 115 ml @ 28.75 mls/ hr Q8H IV 03/06/17 06:00 03/16/17 05:59 03/06/17 06:01 28.75 MLS/HR Insulin Aspart Prota 70%/Aspart 30% (novoLOG MIX 70/ 30) 18 units QDD SC 03/06/17 01:15 03/06/17 01:16 DC 03/06/17 01:36 18 UNITS Polyethylene (Miralax Powder Packet) 17 gm BID PO 03/06/17 08:00 04/05/17 07:59 03/06/17 08:32 17 GM Insulin Aspart (novoLOG ASPART) SLIDING SCALE G... ACHS AK 03/06/17 08:00 04/05/17 07:59 03/06/17 09:26 2 UNITS Objective Vital Signs Date Time Temp Pulse Resp B/P (MAP) Pulse Ox O2 Delivery O2 Flow Rate FiO2 03/06/17 07:22 36.6 73 18 137/62 (87) 98 Room Air 03/06/17 00:05 37.0 94 18 115/61 (79) 94 Room Air 03/05/17 23:56 Room Air 03/05/17 23:02 81 03/05/17 22:51 37.1 78 16 121/52 95 Room Air 03/05/17 21:40 80 20 103/50 95 Room Air 03/05/17 20:05 38.1 03/05/17 19:35 83 18 130/59 97 Room Air 03/05/17 17:35 Room Air 03/05/17 17:32 87 03/05/17 17:17 36.8 82 18 164/75 98 Room Air Physical Exam General Appearance: no apparent distress Eyes: normal inspection ENT: normal ENT inspection Neck: supple Respiratory/Chest: normal breath sounds, no respiratory distress, no accessory muscle use Cardiovascular: regular rate, rhythm, no murmur Abdomen: normal bowel sounds, non tender, soft Extremities: normal range of motion, non-tender, + pertinent finding (+2 edema bilat with findings of stasis dermatitis, they are non tender; patient states that are much improved from yesterday) Neurologic/Psychiatric: alert, normal mood/affect, oriented x 3 Skin: normal color, warm/dry, no rash Lymphatic: no adenopathy Laboratory Results Results Past 24 Hours Test 03/05/17 17:21 03/05/17 17:45 03/05/17 17:51 03/05/17 17:56 Range/Units Bedside Glucose 343 70-99 mg/dl White Blood Count 6.88 4.8-10.8 K/uL Red Blood Count 3.43 4.7-6.1 M/uL Hemoglobin 9.1 14.0-18.0 g/dL Hematocrit 29.5 42-52 % Mean Corpuscular Volume 86.0 80-100 fL Mean Corpuscular Hemoglobin 26.5 25-34 pg Mean Corpuscular Hemoglobin Concent 30.8 32-36 g/dl Platelet Count 123 130-400 K/uL Neutrophils (%) (Auto) 77.3 % Lymphocytes (%) (Auto) 10.8 % Monocytes (%) (Auto) 10.3 % Eosinophils (%) (Auto) 1.0 % Basophils (%) (Auto) 0.3 % Neutrophils # (Auto) 5.32 1.4-6.5 K/uL Lymphocytes # (Auto) 0.74 1.2-3.4 K/uL Monocytes # (Auto) 0.71 0.11-0.59 K/uL Eosinophils # (Auto) 0.07 0-0.5 K/uL Basophils # (Auto) 0.02 0-0.2 K/uL RDW Standard Deviation 60.2 36.4-46.3 fL RDW Coefficient of Variation 19.3 11.5-14.5 % Immature Granulocyte % (Auto) 0.3 % Immature Granulocyte # (Auto) 0.02 0.00-0.02 K/uL Platelet Estimate DECREASED Large Platelets 1+ Prothrombin Time 11.4 9.0-12.0 SECONDS Prothromb Time International Ratio 1.1 0.9-1.1 Activated Partial Thromboplast Time 26.9 21.0-31.0 SECONDS Partial Thromboplastin Ratio 1.0 Sodium Level 134 136-145 mmol/L Potassium Level 4.3 3.5-5.1 mmol/L Chloride Level 103 98-107 mmol/L Carbon Dioxide Level 24 21-32 mmol/L Anion Gap 7.0 3-11 mmol/L Blood Urea Nitrogen 18 7-18 mg/dl Creatinine 1.24 0.60-1.40 mg/dl Est Creatinine Clear Calc Drug Dose 43.3 ml/min Estimated GFR () 60.2 Estimated GFR (Non- 51.9 BUN/Creatinine Ratio 14.2 10-20 Random Glucose 352 70-99 mg/dl Calcium Level 8.3 8.5-10.1 mg/dl Magnesium Level 1.9 1.8-2.4 mg/dl Total Bilirubin 0.7 0.2-1 mg/dl Direct Bilirubin 0.3 0-0.2 mg/dl Aspartate Amino Transf (AST/SGOT) 52 15-37 U/L Alanine Aminotransferase (ALT/SGPT) 40 12-78 U/L Alkaline Phosphatase 303 45-117 U/L Total Creatine Kinase 87 39-308 U/L Creatine Kinase MB 2.4 0.5-3.6 ng/ml Creatine Kinase MB Ratio 2.8 0-3.0 Total Protein 8.8 6.4-8.2 gm/dl Albumin 2.5 3.4-5.0 gm/dl Lipase 30 73-393 U/L Beta-Hydroxybutyric Acid 0.89 0.2-2.81 mg/dL Thyroid Stimulating Hormone (TSH) 4.810 0.300-4.500 uIu/ml Bedside Troponin I < 0.030 0-0.045 ng/ml Bedside Lactic Acid Venous 2.78 0.90-1.70 mmol/L Test 03/05/17 18:15 03/06/17 00:00 03/06/17 00:44 03/06/17 03:53 Range/Units Urine Color ORANGE Urine Appearance CLEAR CLEAR Urine pH 5.5 4.5-7.5 Urine Specific [place] 1.022 1.000-1.030 Urine Protein NEG NEG Urine Glucose (UA) 3+ NEG Urine Ketones NEG NEG Urine Occult Blood 3+ NEG Urine Nitrite NEG NEG Urine Bilirubin NEG NEG Urine Urobilinogen NEG NEG Urine Leukocyte Esterase NEG NEG Urine WBC (Auto) 1-5 0-5 /hpf Urine RBC (Auto) >30 0-4 /hpf Urine Hyaline Casts (Auto) 0 0-5 /lpf Urine Epithelial Cells (Auto) 0-5 0-5 /lpf Urine Bacteria (Auto) NEG NEG Influenza Type A (RT-PCR) Neg for Influ A NEG Influenza Type A Antigen Neg for Influ A NEG Influenza Type B Antigen Neg for Influ B NEG Influenza Type B (RT-PCR) Neg for Influ B NEG Bedside Glucose 236 91 70-99 mg/dl Test 03/06/17 07:25 03/06/17 07:35 03/06/17 07:36 03/06/17 08:02 Range/Units White Blood Count 7.28 4.8-10.8 K/uL Red Blood Count 3.35 4.7-6.1 M/uL Hemoglobin 8.9 14.0-18.0 g/dL Hematocrit 28.7 42-52 % Mean Corpuscular Volume 85.7 80-100 fL Mean Corpuscular Hemoglobin 26.6 25-34 pg Mean Corpuscular Hemoglobin Concent 31.0 32-36 g/dl Platelet Count 113 130-400 K/uL Mean Platelet Volume 7.4-10.4 fL Neutrophils (%) (Auto) 64.4 % Lymphocytes (%) (Auto) 21.4 % Monocytes (%) (Auto) 9.2 % Eosinophils (%) (Auto) 4.3 % Basophils (%) (Auto) 0.4 % Neutrophils # (Auto) 4.69 1.4-6.5 K/uL Lymphocytes # (Auto) 1.56 1.2-3.4 K/uL Monocytes # (Auto) 0.67 0.11-0.59 K/uL Eosinophils # (Auto) 0.31 0-0.5 K/uL Basophils # (Auto) 0.03 0-0.2 K/uL RDW Standard Deviation 60.4 36.4-46.3 fL RDW Coefficient of Variation 19.2 11.5-14.5 % Immature Granulocyte % (Auto) 0.3 % Immature Granulocyte # (Auto) 0.02 0.00-0.02 K/uL Platelet Estimate DECREASED Giant Platelets 2+ Anisocytosis PRESENT Target Cells 1+ Sodium Level 141 136-145 mmol/L Potassium Level 3.5 3.5-5.1 mmol/L Chloride Level 111 98-107 mmol/L Carbon Dioxide Level 25 21-32 mmol/L Anion Gap 5.0 3-11 mmol/L Blood Urea Nitrogen 17 7-18 mg/dl Creatinine 1.12 0.60-1.40 mg/dl Est Creatinine Clear Calc Drug Dose 48.0 ml/min Estimated GFR () 68.1 Estimated GFR (Non- 58.7 BUN/Creatinine Ratio 15.2 10-20 Random Glucose 65 70-99 mg/dl Estimated Average Glucose 186 mg/dl Hemoglobin A1c 8.1 4.5-5.6 % Lactic Acid Level 1.6 0.4-2.0 mmol/L Calcium Level 8.1 8.5-10.1 mg/dl Iron Level 68 35-175 mcg/dl Total Iron Binding Capacity 369 250-450 mcg/dl Total Bilirubin 0.8 0.2-1 mg/dl Aspartate Amino Transf (AST/SGOT) 46 15-37 U/L Alanine Aminotransferase (ALT/SGPT) 37 12-78 U/L Alkaline Phosphatase 268 45-117 U/L Pro-B-Type Natriuretic Peptide 287 0-1800 pg/ml Total Protein 7.9 6.4-8.2 gm/dl Albumin 2.2 3.4-5.0 gm/dl Globulin 5.7 2.5-4.0 gm/dl Albumin/Globulin Ratio 0.4 0.9-2 Amylase Level 46 25-115 U/L Vitamin B12 Level 511 211-911 pg/mL Folate 14.78 >5.38 ng/mL Free Thyroxine 1.12 0.80-1.60 ng/dl Procalcitonin 0.38 0-0.5 ng/ml Lyme Disease IgG Antibody NEG NEG Lyme Disease IgM Antibody NEG NEG Bedside Glucose 72 70-99 mg/dl Free Triiodothyronine 2.47 2.30-4.20 pg/ml Test 03/06/17 11:31 03/06/17 11:43 Range/Units Bedside Glucose 194 70-99 mg/dl Carcinoembryonic Antigen 4.0 0-2.5 ng/ml Microbiology Results 03/05/17 Blood Culture, Received Pending 03/05/17 Blood Culture, Received Pending 03/06/17 MRSA DNA Surveillance Screen - Final, Complete Specimen Negative for MRSA by DNA Probe 03/05/17 Urine Culture, Received Pending Assessment and Plan 86M with a PMHX of LE edema and a h/o primary sclerosing cholangitis p/w worsening fatigue and chills for two days with increased urinary frequency and RUQ pain most likely secondary to an acute episode of Cholangitis. Acute flare of cholangitis with h/o primary sclerosing cholangitis - MRCP reflective of primary sclerosis cholangitis - mildly elevated LFT so will follow - continue with Cholestyramine bid - Urodisol 300 mg tid cont'd - appreciate recs from GI - Zosyn cont'd - patient is on Vistiril 10 mg TID for pruritis however this made the patient extremely drowsy, will change to 5 mg tid PRN for pruritus LLE bilat edema most likely secondary to venous insuff - Echo in 2011- EF 60% - LE Dopplers no DVT - lasix 20 mg PO qam cont'd Anemia of unknown origin, Production problem vs Loss (Hematuria vs GI) - patient's BL is approx 10 - FOBT pending - Patient has a 3 mm right kidney stone which is the most likely cause of the patient's blood in his UA - Will keep Protonix at 40 mg daily as the patient does not reflect active GI bleeding with worsening hgb levels in house KHADAR on CKD III- Resolved * Creatinine is 1.24, baseline is around 1.0 * Encourage PO hydration. DMII - Will change the 70/30 dosing schedule to insulin ISS - patient was hypoglycemic throughout the morning so will defer Lantus for now and follow daytime surgar with ISS, will add based on pattern - Home regimen is (Novolog Mix 70/30), 28 UNITS SC QAM + 18 UNITS SC QPM - HBA1C is 8.1%, based on age goal range is < 8% Lymphadenopathy - Noted on CT that the patient is suffering from enlarged retroperitoneal lymph nodes - patient did have a tubular adenoma resected during colonoscopy at the beginning of january - serum blood tests for CEA, CA 19-9 and CA 27-29 per GI, CEA is elevated at 4 and others pending - Patient is already arranged to follow up with Dr Alcaraz Thrombocytopenia since september 2016 - recheck in am - peripheral smear is not noted to be done, will order this Constipation/ Colitis Will trial Miralax bid to aid in bowel movement - if unable to have BM may consider Go Lytely as the patient is not noted to be obstructed on the CT Hypothyroid - TSH was 4.8 (elevated) - c/w Synthroid 137 mcg PO DAILY - Free T4 and free T3 is WNL so most likely secondary to illness so will refrain from changing dose of thyroid medication at this time Depression - Paxil 30 MG PO HS 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 denies any concerns no abdominal pain Constitutional: denies: fever Respiratory: negative: short of breath Cardiovascular: denies chest pain General Appearance: no apparent distress Respiratory: lungs clear, no respiratory distress Cardiovascular: regular rate, rhythm Neurologic/Psychiatric: oriented x 3, other (drowsy but easily arousable) Skin Characteristics: warm/dry Assessment/Plan Resident Physician Supervision Note: I independently interviewed and examined the patient and verified the fernandez history and physical, reviewed labs and image studies, discussed the case with the resident Dr. Bland and agree with the findings and care plan.
[2017-03-06 15:53] VITALS: BP 126/70; PULSE 74; TEMP 36.7; O2SAT 100
[2017-03-06] MEDS ORDERED: hydrOXYzine HCL 10 MG TAB PO SCH (20:00)
[2017-03-06] MEDS: PAROXETINE 20 MG TAB PO SCH (20:15)
[2017-03-06] MEDS: hydrOXYzine HCL 10 MG TAB PO PRN (20:22)
[2017-03-06 23:31] VITALS: BP 129/63; PULSE 80; TEMP 36.6; O2SAT 100
[2017-03-07] VITALS: O2SAT 100
[2017-03-07] MEDS: hydrOXYzine HCL 10 MG TAB PO PRN ×2 (02:28→10:09)
[2017-03-07] MEDS: PIPERACILL/TAZOBAC IV 3.375 GM in DEXTROSE 5% 100ML IV SCH (05:38)
[2017-03-07] MEDS: LEVOTHYROXINE 137 MCG TAB PO SCH (05:41)
[2017-03-07 07:15] VITALS: BP 122/63; PULSE 84; TEMP 36.7; O2SAT 96
[2017-03-07 07:28] LABS: ALB/GLOB RATIO 0.4 (0.9-2); BUN/CREATININE RATIO 14.1 (10-20); CALCIUM 7.9 mg/dl (8.5-10.1); CREATININE 1.17 mg/dl (0.60-1.40); HEMATOCRIT 25.9 % (42-52); MEAN CELL VOLUME 85.2 fL (80-100); MEAN CORPUSCULAR HEMOGLOBIN 26.3 pg (25-34); MEAN CORPUSCULAR HGB CONC 30.9 g/dl (32-36); PLATELET COUNT 101 K/uL (130-400); RED BLOOD COUNT 3.04 M/uL (4.7-6.1); WHITE BLOOD COUNT 4.82 K/uL (4.8-10.8)
[2017-03-07 07:29] LABS: BASO % 0.6 %; BASO ABS # 0.03 K/uL (0-0.2); COMPLETE YES; EOS % 7.1 %; GIANT PLATELETS 2+; HYPOCHROMIA PRESENT; IG% 0.2 %; LYMPH % 27.6 %; LYMPH ABS # 1.33 K/uL (1.2-3.4); MONO % 12.4 %; NEUT % 52.1 %; PLT ESTIMATE DECREASED; TARGET CELLS 1+
[2017-03-07 08:00] VITALS: O2SAT 96
[2017-03-07] MEDS: POLYETHYLENE (MIRALAX) 17 GM PACK PO SCH ×2 (08:17→19:50)
[2017-03-07] MEDS: POTASSIUM CHLORIDE 10 MEQ TABCR PO SCH (08:17)
[2017-03-07] MEDS: PANTOprazole SOD 40 MG TAB PO SCH (08:18)
[2017-03-07] MEDS: URSODIOL 300 MG CAP PO SCH ×3 (08:19→19:51)
[2017-03-07] MEDS: FUROSEMIDE 20 MG TAB PO SCH (08:19)
[2017-03-07] MEDS: ENOXAPARIN 40 MG/0.4 ML SYR SQ SCH ×2 (08:21→10:07)
[2017-03-07] MEDS: INSULIN ASPART 100 UNITS/ML 3 ML PEN SC SCH ×4 (08:28→21:04)
[2017-03-07] MEDS ORDERED: INSULIN GLARGINE SOLOSTAR 100 UNITS/ML 3 ML PEN SQ ONE (09:35)
[2017-03-07] MEDS: CHOLESTYRAMINE LIGHT 4 GM PKT PO SCH ×2 (10:06→21:32)
--- NOTE | 2017-03-07 10:54 | Family Medicine Progress Note ---
Progress Note Date of Service Mar 07, 2017. 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 w/ farm consultant Pain: 0/10 PO Intake: WNL Voiding: no voiding problems Patient is much less somnolent today having not received the Vistiril this morning States that his pain has completely resolved and he had a BM this morning that was large, no blood in the stool and it was not black - We did discuss the plan in detail and the patient reflected understanding and questions were answered Constitutional: No fever Eyes: No worsening of vision ENT: No hearing loss Respiratory: No cough, No sputum, No wheezing, No shortness of breath, No dyspnea on exertion Cardiovascular: No chest pain Abdomen: No pain, No nausea, No vomiting, No diarrhea, No constipation, No GI bleeding Musculoskeletal: No joint pain Male : No dysuria, No hematuria Neurologic: No weakness, No balance problems Psychiatric: No depression symptoms Heme: No abnormal bleeding/bruising, No clotting problems Endo: + fatigue Skin: No rash Medications Medications Administered Medications (Trade) Dose Ordered Sig/Santhosh Route Start Time Stop Time Status Last Admin Dose Admin Sodium Chloride 1,000 ml @ 125 mls/hr Q8H STAT IV 03/05/17 17:31 03/06/17 00:31 DC 03/05/17 18:00 125 MLS/HR Ceftriaxone Sodium (Rocephin Inj) 1 gm NOW STAT IV 03/05/17 19:59 03/05/17 20:00 DC 03/05/17 20:12 1 GM Ibuprofen (Advil Tab) 400 mg NOW STAT PO 03/05/17 19:59 03/05/17 20:00 DC 03/05/17 20:12 400 MG Cholestyramine Resin (Questran Powder Light) 4 gm BID@10,22 PO 03/05/17 22:00 04/04/17 21:59 03/07/17 10:06 4 GM Furosemide (Lasix Tab) 20 mg QAM PO 03/06/17 08:00 04/05/17 08:59 03/07/17 08:19 20 MG Hydroxyzine HCl (Vistaril Tab) 10 mg TID PO 03/06/17 08:00 03/06/17 10:42 DC 03/06/17 08:30 10 MG Levothyroxine Sodium (Synthroid Tab) 137 mcg DAILYBB PO 03/06/17 06:30 04/05/17 06:29 03/07/17 05:41 137 MCG Potassium Chloride (Klor-Con M10) 10 meq QAM PO 03/06/17 08:00 04/05/17 08:59 03/07/17 08:17 10 MEQ Ursodiol (Actigall Cap) 300 mg TID PO 03/06/17 08:00 04/05/17 08:59 03/07/17 08:19 300 MG Paroxetine HCl (pAXil TAB) 30 mg HS PO 03/06/17 21:00 04/05/17 20:59 03/06/17 20:15 30 MG Pantoprazole Sodium (Protonix Tab) 40 mg BID PO 03/06/17 08:00 03/06/17 10:42 DC 03/06/17 08:33 40 MG Piperacillin Sod/ Tazobactam Sod 3.375 gm/Dextrose 115 ml @ 230 mls/hr NOW ONCE IV 03/06/17 00:45 03/06/17 01:14 DC 03/06/17 01:36 230 MLS/HR Piperacillin Sod/ Tazobactam Sod 3.375 gm/Dextrose 115 ml @ 28.75 mls/ hr Q8H IV 03/06/17 06:00 03/16/17 05:59 03/07/17 05:38 28.75 MLS/HR Insulin Aspart Prota 70%/Aspart 30% (novoLOG MIX 70/ 30) 18 units QDD SC 03/06/17 01:15 03/06/17 01:16 DC 03/06/17 01:36 18 UNITS Polyethylene (Miralax Powder Packet) 17 gm BID PO 03/06/17 08:00 04/05/17 07:59 03/07/17 08:17 17 GM Insulin Aspart (novoLOG ASPART) SLIDING SCALE G... ACHS SC 03/06/17 08:00 04/05/17 07:59 03/07/17 08:28 6 UNITS Pantoprazole Sodium (Protonix Tab) 40 mg DAILY PO 03/07/17 08:00 04/05/17 08:59 03/07/17 08:18 40 MG Hydroxyzine HCl (Vistaril Tab) 5 mg TID PRN PO 03/06/17 14:00 04/05/17 08:59 03/07/17 10:09 5 MG Enoxaparin Sodium (Lovenox Inj) 40 mg QAM SQ 03/07/17 08:00 04/06/17 07:59 03/07/17 10:07 40 MG Insulin Glargine (Lantus Solostar Pen) 5 units 0935 ONCE SQ 03/07/17 09:35 03/07/17 09:41 DC 03/07/17 10:08 5 UNITS Objective Vital Signs Date Time Temp Pulse Resp B/P (MAP) Pulse Ox O2 Delivery O2 Flow Rate FiO2 03/07/17 07:15 36.7 84 16 122/63 (82) 96 Room Air 03/07/17 00:00 100 Room Air 03/06/17 23:31 36.6 80 16 129/63 (85) 100 Room Air 03/06/17 16:00 Room Air 03/06/17 15:53 36.7 74 16 126/70 (88) 100 Room Air Physical Exam General Appearance: no apparent distress Eyes: normal inspection ENT: normal ENT inspection Neck: supple Respiratory/Chest: normal breath sounds, no respiratory distress, no accessory muscle use Cardiovascular: regular rate, rhythm, no murmur Abdomen: normal bowel sounds, non tender, soft, + distended (however much improved from yesterday) Extremities: non-tender, normal inspection, no calf tenderness, + pedal edema ( +2 pedal edema with no change from yesterday, non pitting) Neurologic/Psychiatric: alert, normal mood/affect, oriented x 3 Skin: normal color, warm/dry, no rash Lymphatic: no adenopathy Laboratory Results Results Past 24 Hours Test 03/06/17 11:31 03/06/17 11:43 03/06/17 16:51 03/06/17 20:02 Range/Units Bedside Glucose 194 204 182 70-99 mg/dl Carcinoembryonic Antigen 4.0 0-2.5 ng/ml Test 03/07/17 06:20 03/07/17 07:25 Range/Units White Blood Count 4.82 4.8-10.8 K/uL Red Blood Count 3.04 4.7-6.1 M/uL Hemoglobin 8.0 14.0-18.0 g/dL Hematocrit 25.9 42-52 % Mean Corpuscular Volume 85.2 80-100 fL Mean Corpuscular Hemoglobin 26.3 25-34 pg Mean Corpuscular Hemoglobin Concent 30.9 32-36 g/dl Platelet Count 101 130-400 K/uL Neutrophils (%) (Auto) 52.1 % Lymphocytes (%) (Auto) 27.6 % Monocytes (%) (Auto) 12.4 % Eosinophils (%) (Auto) 7.1 % Basophils (%) (Auto) 0.6 % Neutrophils # (Auto) 2.51 1.4-6.5 K/uL Lymphocytes # (Auto) 1.33 1.2-3.4 K/uL Monocytes # (Auto) 0.60 0.11-0.59 K/uL Eosinophils # (Auto) 0.34 0-0.5 K/uL Basophils # (Auto) 0.03 0-0.2 K/uL RDW Standard Deviation 60.5 36.4-46.3 fL RDW Coefficient of Variation 19.6 11.5-14.5 % Immature Granulocyte % (Auto) 0.2 % Immature Granulocyte # (Auto) 0.01 0.00-0.02 K/uL Platelet Estimate DECREASED Giant Platelets 2+ Hypochromasia PRESENT Target Cells 1+ Sodium Level 138 136-145 mmol/L Potassium Level 4.0 3.5-5.1 mmol/L Chloride Level 108 98-107 mmol/L Carbon Dioxide Level 23 21-32 mmol/L Anion Gap 7.0 3-11 mmol/L Blood Urea Nitrogen 16 7-18 mg/dl Creatinine 1.17 0.60-1.40 mg/dl Est Creatinine Clear Calc Drug Dose 45.9 ml/min Estimated GFR () 64.6 Estimated GFR (Non- 55.7 BUN/Creatinine Ratio 14.1 10-20 Random Glucose 223 70-99 mg/dl Calcium Level 7.9 8.5-10.1 mg/dl Total Bilirubin 1.0 0.2-1 mg/dl Aspartate Amino Transf (AST/SGOT) 35 15-37 U/L Alanine Aminotransferase (ALT/SGPT) 32 12-78 U/L Alkaline Phosphatase 235 45-117 U/L Total Protein 7.3 6.4-8.2 gm/dl Albumin 2.0 3.4-5.0 gm/dl Globulin 5.3 2.5-4.0 gm/dl Albumin/Globulin Ratio 0.4 0.9-2 Bedside Glucose 213 70-99 mg/dl Assessment and Plan 86M with a PMHX of LE edema and a h/o primary sclerosing cholangitis p/w worsening fatigue and chills for two days with increased urinary frequency and RUQ pain most likely secondary to an acute episode of Cholangitis. Acute flare of cholangitis with h/o primary sclerosing cholangitis - MRCP reflective of primary sclerosis cholangitis - mildly elevated LFT so will follow - improving today - continue with Cholestyramine bid - Urodisol 300 mg tid cont'd - appreciate recs from GI - Zosyn d/c and transitioned to Augmentin 875 mg bid - Vistaril 5 mg tid PRN for pruritus ( changed from 10 mg tid santhosh secondary to sedation) LLE bilat edema most likely secondary to venous insuff - Echo in 2011- EF 60% - LE Dopplers no DVT - lasix 20 mg PO qam cont'd Anemia of unknown origin, Production problem vs Loss (Hematuria vs GI) - patient's BL is approx 10, decreased to 8 g/dl so will recheck this afternoon to assess if this was true hgb level - FOBT pending - Patient has a 3 mm right kidney stone which is the most likely cause of the patient's blood in his UA - Will keep Protonix at 40 mg daily as the patient does not reflect active GI bleeding with worsening hgb levels in house KHADAR on CKD III- Resolved - Encourage PO hydration. DMII - Will change the 70/30 dosing schedule to insulin ISS - insulin ISS with Lantus 5 units bid - Home regimen is (Novolog Mix 70/30), 28 UNITS SC QAM + 18 UNITS SC QPM - HBA1C is 8.1%, based on age goal range is < 8% - we discussed that on d/c patient should check sugars regularly for a week and bring in to his PCP for assessment during the follow up visit Lymphadenopathy - Noted on CT that the patient is suffering from enlarged retroperitoneal lymph nodes - patient did have a tubular adenoma resected during colonoscopy at the beginning of january but otherwise WNL - serum blood tests for CEA, CA 19-9 and CA 27-29 per GI, CEA is elevated at 4 and others pending - Patient is already arranged to follow up with Dr Kieran Varela since september 2016 - follow - peripheral smear pending Constipation/ Colitis - Miralax bid cont'd at least while on inpatient, patient has had a BM - discussed that as an outpatient patient should consider continuing Miralax 17 Gm daily for regular BM Hypothyroid - TSH was 4.8 (elevated) - Synthroid 137 mcg PO DAILY - Free T4 and free T3 is WNL so most likely secondary to illness so will refrain from changing dose of thyroid medication at this time Depression - Paxil 30 MG PO HS 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 - bladder scan and straight cath prn - if requires recurrent straight cath consider addition of Flomax HS DVT prophylaxis Lovenox because of thrombocytopenia and SCD Full Code Anticipate d/c tomorrow Discharge planning: home Reviewed: Pt Seen/Exam by Me History no abdominal pain, nausea Constitutional: denies: fever Respiratory: negative: short of breath Cardiovascular: denies chest pain General Appearance: no apparent distress Respiratory: lungs clear, no respiratory distress Cardiovascular: regular rate, rhythm Gastrointestinal: normal bowel sounds, non tender, soft Neurologic/Psychiatric: alert, oriented x 3 Skin Characteristics: warm/dry Assessment/Plan Resident Physician Supervision Note: I independently interviewed and examined the patient and verified the fernandez history and physical, reviewed labs and image studies, discussed the case with the resident Dr. Bland and agree with the findings and care plan.
--- NOTE | 2017-03-07 11:56 | PROGRESS NOTE ---
DATE: 03/07/2017 SUBJECTIVE: The patient feels better. His appetite is much better. He has no abdominal pain. Objectively, his vital signs are normal. He is afebrile. His white blood cell count is 4.82, hemoglobin 8, platelets 101,000. Alk phos is 235. Aminotransferases are normal. Bilirubin is 1. So far, his cultures are no growth. MRSA screen is negative. The patient continues on IV Zosyn. IMPRESSION: The patient probably had a bout of cholangitis, which is improving on IV antibiotics. I think at this point, we could switch him to oral antibiotics. If he does well, he may be able to be discharged tomorrow. I would treat him for a total of 10 to 14 days including both IV and oral antibiotics.
[2017-03-07 12:14] LABS: HEMATOCRIT 27.7 % (42-52)
[2017-03-07 15:56] VITALS: BP 124/65; PULSE 67; TEMP 36.5; O2SAT 98
[2017-03-07] MEDS: AMOXICILLIN/CLAVULANATE TAB 875 MG TAB PO SCH (17:35)
[2017-03-07] MEDS: PAROXETINE 20 MG TAB PO SCH (19:52)
[2017-03-07] MEDS ORDERED: INSULIN GLARGINE SOLOSTAR 100 UNITS/ML 3 ML PEN SQ SCH (20:00)
[2017-03-07] MEDS: INSULIN GLARGINE SOLOSTAR 100 UNITS/ML 3 ML PEN SQ SCH (21:05)
[2017-03-07 23:10] VITALS: BP 145/63; PULSE 77; TEMP 37; O2SAT 97
[2017-03-08] VITALS: O2SAT 96
[2017-03-08] MEDS: hydrOXYzine HCL 10 MG TAB PO PRN ×2 (04:54→08:24)
[2017-03-08] MEDS: LEVOTHYROXINE 137 MCG TAB PO SCH (06:13)
[2017-03-08 07:06] LABS: MEAN CORPUSCULAR HGB CONC 30.5 g/dl (32-36)
[2017-03-08 07:33] LABS: BUN/CREATININE RATIO 12.1 (10-20); CALCIUM 8.3 mg/dl (8.5-10.1); CREATININE 1.07 mg/dl (0.60-1.40); POTASSIUM 3.9 mmol/L (3.5-5.1)
[2017-03-08 07:36] LABS: ALB/GLOB RATIO 0.4 (0.9-2)
[2017-03-08 07:50] LABS: HEMATOCRIT 25.9 % (42-52); MEAN CELL VOLUME 84.6 fL (80-100); MEAN CORPUSCULAR HEMOGLOBIN 26.5 pg (25-34); RED BLOOD COUNT 3.06 M/uL (4.7-6.1); WHITE BLOOD COUNT 4.45 K/uL (4.8-10.8)
[2017-03-08 08:00] VITALS: O2SAT 96
[2017-03-08 08:08] LABS: PLATELET COUNT 98 K/uL (130-400)
[2017-03-08 08:14] LABS: BASO % 0.9 %; BASO ABS # 0.04 K/uL (0-0.2); COMPLETE YES; EOS % 7.9 %; GIANT PLATELETS 3+; HYPOCHROMIA PRESENT; IG% 0.4 %; LYMPH % 31.9 %; LYMPH ABS # 1.42 K/uL (1.2-3.4); MONO % 11.5 %; NEUT % 47.4 %
[2017-03-08] MEDS: PANTOprazole SOD 40 MG TAB PO SCH (08:23)
[2017-03-08] MEDS: URSODIOL 300 MG CAP PO SCH (08:24)
[2017-03-08] MEDS: POLYETHYLENE (MIRALAX) 17 GM PACK PO SCH (08:25)
[2017-03-08] MEDS: AMOXICILLIN/CLAVULANATE TAB 875 MG TAB PO SCH (08:25)
[2017-03-08] MEDS: FUROSEMIDE 20 MG TAB PO SCH (08:25)
[2017-03-08] MEDS: POTASSIUM CHLORIDE 10 MEQ TABCR PO SCH (08:25)
[2017-03-08] MEDS: ENOXAPARIN 40 MG/0.4 ML SYR SQ SCH (08:26)
[2017-03-08] MEDS: INSULIN ASPART 100 UNITS/ML 3 ML PEN SC SCH ×2 (08:31→13:22)
[2017-03-08] MEDS: INSULIN GLARGINE SOLOSTAR 100 UNITS/ML 3 ML PEN SQ SCH (08:32)
[2017-03-08 08:35] VITALS: BP 132/61; PULSE 69; TEMP 36.6; O2SAT 96
[2017-03-08] MEDS ORDERED: AMOX1TAB43 PO ×2 (10:20)
--- NOTE | 2017-03-08 10:26 | Discharge Instructions ---
Discharge Instructions Date of Service Mar 08, 2017. 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 Instructions / Follow-Up Instructions / Follow-Up You were found to have worsening inflammation of your bile duct. We started you on IV antibiotics and now have switched you to oral antibiotics. We will be sending you home with 6 more days of antibiotics in order to finish a total of a 10 day course. You will need to follow up with Dr. Gilbert and your PCP in order to discuss these issues further If you have worsening abdominal pain, fever, vomiting or diarrhea then please come back to the hospital Current Hospital Diet Patient's current hospital diet: Diabetes Type 2 Diet Discharge Diet Recommended Diet: Diabetes Type 2 Diet Pending Studies Studies pending at discharge: yes List of pending studies: CA19-9 CA 27-29 Laboratory Results Hemoglobin A1c Test 03/06/17 07:25 Range/Units Estimated Average Glucose 186 mg/dl Hemoglobin A1c 8.1 H 4.5-5.6 % Lipid Panel Test 12/11/16 09:23 Range/Units Triglycerides Level 46 0-150 mg/dl Cholesterol Level 131 0-200 mg/dl HDL Cholesterol 60 mg/dl Cholesterol/HDL Ratio 2.2 LDL Cholesterol, Calculated 62 mg/dl Medical Emergencies . Who to Call and When: Medical Emergencies: If at any time you feel your situation is an emergency, please call 911 immediately. . Non-Emergent Contact Non-Emergency issues call your: Primary Care Provider, Intelligence Officer . . "Provider Documentation" section prepared by Joe Ponce. . VTE Core Measure Inpt VTE Proph given/why not?: SCD's
[2017-03-08] MEDS: CHOLESTYRAMINE LIGHT 4 GM PKT PO SCH (10:54)
[2017-03-08 13:55] VITALS: BP 132/61; PULSE 69; TEMP 36.6; O2SAT 96
--- NOTE | 2017-03-08 14:42 | Discharge Summary ---
Discharge Summary Date of Service Mar 08, 2017. Discharge Summary Admission Date: Mar 05, 2017 at 23:05 Discharge Date: Mar 08, 2017 Discharge Disposition: Home Principal Diagnosis: Primary Sclerosing Cholangitis Immunizations: Have You Had Influenza Vaccine: N/A History of Tetanus Vaccine?: Yes History of Pneumococcal: Unknown History of Hepatitis B Vaccine: Yes Consultations: GI Medication Reconciliation New Medications: Amoxicillin & Pot Clavulanate (Amoxicillin/Clavulanate P) 1 Tab Tab 875 MG PO BIDM for 6 Days, #13 TAB Continued Medications: Cholestyramine (Questran) 4 Gm/Dose Pow Furosemide (Lasix) 20 Mg Tab 20 MG PO QAM Hydroxyzine HCl (Hydroxyzine HCl) 10 Mg Tab 10 MG PO TID Insulin Aspart 70/30 (Novolog Mix 70/30) Susp 28 UNITS SC QAM Insulin Aspart 70/30 (Novolog Mix 70/30) Susp 18 UNITS SC QPM Levothyroxine Sodium (Levothyroxine Sodium) 137 Mcg Tab 137 MG PO DAILY Omeprazole (Prilosec) 20 Mg Cap 20 MG PO QAM TAKE BEFORE BREAKFAST Paroxetine Hcl (Paxil) 30 Mg Tab 30 MG PO HS Potassium Chloride (Micro-K Ext Rel) 10 Meq Capcr 10 MEQ PO QAM Ursodiol (Actigall) 300 Mg Cap 300 MG PO TID Discharge Exam Patient feeling well and without any abdominal pain, nausea or vomiting Denies any fevers chills or sweats Is wondering what he should do about his insulin as he is unsure if he should continue his current home dosage. 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 Review of Systems: Constitutional: No fever, No chills, No sweats Respiratory: No cough, No sputum, No shortness of breath, No dyspnea on exertion Cardiovascular: No chest pain, No claudication, No palpitations Abdomen: No pain, No nausea, No vomiting Genitourinary - Male: No dysuria Hematologic / Lymphatic: No abnormal bleeding/bruising, No clotting problems Physical Exam: General Appearance: WD/WN, no apparent distress Neck: supple, no carotid bruits Respiratory/Chest: lungs clear, no respiratory distress, no accessory muscle use Cardiovascular: regular rate, rhythm, no edema, no murmur, normal peripheral pulses Abdomen / GI: normal bowel sounds, non tender, soft, + distended Extremities: no pedal edema, + pertinent finding (appear swollen and skin is tight and shiny (patient says this is baseline)) Neurologic/Psychiatric: alert, normal mood/affect, oriented x 3 Skin: normal color, warm/dry, no rash Hospital Course 86M with a PMHX of LE edema and a h/o primary sclerosing cholangitis p/w worsening fatigue and chills for two days with increased urinary frequency and RUQ pain most likely secondary to an acute episode of Cholangitis. Acute flare of cholangitis with h/o primary sclerosing cholangitis - MRCP reflective of primary sclerosis cholangitis - mildly elevated LFT- AST 29 and ALT 29 on discharge, Alk phos 232 - continue with Cholestyramine bid - Urodisol 300 mg tid cont'd - appreciate recs from GI - Zosyn d/c and transitioned to Augmentin 875 mg bid on discharge to finish 10 day course - Vistaril 5 mg tid PRN for pruritus ( changed from 10 mg tid rei secondary to sedation) - will follow with Vladimir as outpatient LLE bilat edema most likely secondary to venous insuff - Echo in 2011- EF 60% - LE Dopplers no DVT - lasix 20 mg PO qam cont'd Anemia of unknown origin, Production problem vs Loss (Hematuria vs GI) - patient's BL is approx 10, 8.1 upon discharge - Patient has a 3 mm right kidney stone which is the most likely cause of the patient's blood in his UA - protonix 40mg daily in case of GI bleeding source - will need to follow up as outpatient with PCP KHADAR on CKD III- Resolved - Encourage PO hydration. DMII - Will change the 70/30 dosing schedule to insulin ISS - insulin ISS with Lantus 5 units bid - Home regimen is (Novolog Mix 70/30), 28 UNITS SC QAM + 18 UNITS SC QPM - HBA1C is 8.1%, based on age goal range is < 8% - we discussed that on d/c patient should check sugars regularly for a week and bring in to his PCP for assessment during the follow up visit Lymphadenopathy - Noted on CT that the patient is suffering from enlarged retroperitoneal lymph nodes - patient did have a tubular adenoma resected during colonoscopy at the beginning of january but otherwise WNL - serum blood tests for CEA, CA 19-9 and CA 27-29 per GI, CEA is elevated at 4 and others pending - Patient is already arranged to follow up with Dr Alcaraz Thrombocytopenia since september 2016 on discharge - will need to follow up with PCP upon discharge Constipation/ Colitis - Miralax bid cont'd at least while on inpatient - discussed that as an outpatient patient should consider continuing Miralax 17 Gm daily for regular BM Hypothyroid - TSH was 4.8 (elevated) - Synthroid 137 mcg PO DAILY - Free T4 and free T3 is WNL so most likely secondary to illness so will refrain from changing dose of thyroid medication at this time Depression - Paxil 30 MG PO HS 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 Discussed with Dr. Joe Ponce and agree with findings and plan as documented in the note. 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 Vitals are reviewed Physical exam shows him to be eating lunch when I saw him his heart is regular lungs are clear abdomen soft and benign next Patient will be home on Augmentin for additional 6 days complete a ten-day course continuing other medications that he usually takes and will follow-up with Dr. Gilbert. In addition his glucose is been acceptable while in the hospital he'll return to his 70/30 mixed once discharged Documented By: Brenden Koenig Total Time Spent: Greater than 30 minutes This includes examination of the patient, discharge planning, medication reconciliation, and communication with other providers. Discharge Instructions Please refer to the electronic Patient Visit Report (Discharge Instructions) for additional information. Additional Copies To Presley Gilbert M.D.; Millicent Dutton C.R.N.P.
[2017-03-17] MEDS ORDERED: OXYC1TAB3 PO (11:11)
== END 2017-03-08 14:30 | disposition home or self-care (01) ==
LOC: C.EDB 17:07 → C.MS4W 23:05 → ENRESERV 23:21
PROVIDERS: ADMIT Family Medicine; ATTEND Family Medicine
DX: K83.0 Cholangitis (principal); R31.9 Hematuria, unspecified; R59.1 Generalized enlarged lymph nodes; D64.9 Anemia, unspecified; N18.3 Chronic kidney disease, stage 3 (moderate); F32.9 Major depressive disorder, single episode, unspecified; D69.6 Thrombocytopenia, unspecified; N40.1 Benign prostatic hyperplasia with lower urinary tract symptoms; E03.9 Hypothyroidism, unspecified; I51.7 Cardiomegaly; N20.0 Calculus of kidney; E11.9 Type 2 diabetes mellitus without complications; Z83.3 Family history of diabetes mellitus; Z88.2 Allergy status to sulfonamides; Z79.4 Long term (current) use of insulin

== ENCOUNTER → 2017-03-11 | Outpatient (CLI) | payer BC ==
[~2017-03-11] MED LIST changes: +AMOX1TAB43 PO; +CHOL4POW12 PO; +OXYC1TAB3 PO; +SYN137 PO
== END | disposition home or self-care (01) ==
LOC: C.LABSPEC 17:13
PROVIDERS: ATTEND Dermatology
DX: L29.9 Pruritus, unspecified (principal); S81.801A Unspecified open wound, right lower leg, initial encounter; X58.XXXA Exposure to other specified factors, initial encounter

== ENCOUNTER → 2017-03-12 | Outpatient (CLI) | payer BC ==
[~2017-03-12] MED LIST changes: +AMIT25TA9 PO; -AMOX1TAB43 PO; +BENZ1CAP90 PO; +CLR10 PO; +DEXT30TA7 PO; -DIPH25CA5 PO; +HUMULIN NPH SC; +HYDR-3126 PO; -LEVO137C2 PO; +LEVO150T9 PO; +MULTTAB58 PO; +OXYC-90 PO; -OXYC1TAB3 PO
[2017-03-12 14:53] LABS: HEMATOCRIT 27.5 % (42-52); HEMOGLOBIN 8.5 g/dL (14.0-18.0); MEAN CELL VOLUME 86.5 fL (80-100); MEAN CORPUSCULAR HEMOGLOBIN 26.7 pg (25-34); RED CELL DISTRIBUTION WIDTH CV 19.5 % (11.5-14.5); RED CELL DISTRIBUTION WIDTH SD 61.7 fL (36.4-46.3); WHITE BLOOD COUNT 4.73 K/uL (4.8-10.8)
[2017-03-12 15:08] LABS: BLOOD UREA NITROGEN 18 mg/dl (7-18); CALCIUM 8.5 mg/dl (8.5-10.1); CARBON DIOXIDE 25 mmol/L (21-32); GLUCOSE 192 mg/dl (70-99); POTASSIUM 4.4 mmol/L (3.5-5.1); SODIUM 138 mmol/L (136-145)
[2017-03-12 15:32] LABS: PLATELET COUNT 121 K/uL (130-400)
[2017-03-12 15:34] LABS: BASO % 0.6 %; BASO ABS # 0.03 K/uL (0-0.2); EOS % 6.8 %; EOS ABS # 0.32 K/uL (0-0.5); IG# 0.01 K/uL (0.00-0.02); LYMPH % 27.1 %; LYMPH ABS # 1.28 K/uL (1.2-3.4); MONO % 10.6 %; NEUT % 54.7 %; NEUT ABS # 2.59 K/uL (1.4-6.5)
== END | disposition home or self-care (01) ==
LOC: C.LAB1850 13:43
PROVIDERS: ATTEND Nurse Practitioner Adult Health
DX: Z01.812 Encounter for preprocedural laboratory examination (principal); R59.1 Generalized enlarged lymph nodes; E03.9 Hypothyroidism, unspecified; D64.9 Anemia, unspecified

== ENCOUNTER → 2017-03-17 | Day surgery (SDC) | payer BC ==
[2017-03-11 08:41] VITALS: BMI 26.0
[~2017-03-17] VITALS: Ht 177.8 cm; Wt 83.6 kg
[~2017-03-17] MED LIST changes: +ATROPINE SULFATE 0.1 MG/ML 5ML SYR IV PRN; +BUPIVACAINE/EPINEPHRINE 0.5% MPF 1:200,000 30 ML VIAL ONE; +CEFAZOLIN 2000MG IV PUSH 10 ML IV SCH; +FENTANYL CITRATE INJ 50 MCG/1 ML 2 ML VIAL IV PRN; +FENTANYL CITRATE INJ 50 MCG/1 ML 2 ML VIAL ONE; +LABETALOL HCL IV 5 MG/ML 20ML IV PRN; +LACTATED RINGER'S 1000ML 1,000 ML IV SCH; +LIDOCAINE HCL 2% 2 ML VIAL (20MG/ML) ONE; +MoRPHine SULFATE 2 MG/ML CARP IV PRN; +ONDANSETRON INJ 2 MG/ML 2 ML VIAL IV PRN; +ONDANSETRON INJ 2 MG/ML 2 ML VIAL ONE; +OXYCODONE HCL IR 5 MG TAB (IMMEDIATE RELEASE) PO PRN; +PROPOFOL IV EMULSION 10 MG/ML 20 ML VIAL IV ONE
[2017-03-17 08:09] VITALS: BP 143/60; PULSE 75; TEMP 36.7; O2SAT 96; Ht 177.8 cm; Wt 83.6 kg
--- NOTE | 2017-03-17 08:17 | History & Physical Bridge Note ---
H&P Re-Evaluation Bridge Note: I have examined the patient, reviewed the History & Physical and in the interval since the performance of the History & Physical I have noted the following changes of clinical significance: No changes noted. will be performing left inguinal Lymph node excisional bx with needle loc.
--- NOTE | 2017-03-17 09:54 | History & Physical Bridge Note ---
H&P Re-Evaluation Bridge Note: I have examined the patient, reviewed the History & Physical and in the interval since the performance of the History & Physical I have noted the following changes of clinical significance: No changes noted correction to prior bridge not. Radiology called me suggesting that a node in the right groin would be easier/safer and also appeared abnormal so we should be able to obtain a diagnosis. we will change from the left groin the right groin. pt re- marked/consent changed.
--- NOTE | 2017-03-17 09:57 | DIAGNOSTIC IMAGING REPORT ---
CT-GUIDED NEEDLE LOCALIZATION OF A RIGHT EXTERNAL ILIAC LYMPH NODE HISTORY: Lymphadenopathy. PROCEDURE: Written informed consent was obtained. A grid was placed over the right lower quadrant. A 1.4 x 1.0 cm right external iliac lymph node was localized by CT and marked for biopsy. The right lower quadrant was prepped and draped in sterile fashion. 1% lidocaine was used for local anesthesia. A 7.5 Ramon II needle was inserted into the right external iliac lymph node by CT guidance. The needle was removed and the wire remained within the lymph node. The patient tolerated the procedure well. There were no immediate complications. The patient was transported to the OR for surgical excision. IMPRESSION: Successful CT-guided needle localization of the right external iliac lymph node. Electronically signed by: Fredo Dietz M.D. 03/17/2017 9:56 AM Dictated Date/Time: 03/17/2017 9:53 AM
--- NOTE | 2017-03-17 11:05 | [facility] Operative Report ---
Operative Report Operative Date Mar 17, 2017. Pre-Operative Diagnosis Lymphadenopathy Post-Operative Diagnosis Lymphadenopathy Procedure(s) Performed Right Inguinal Lymph Node Excision Biopsy Surgeon Dr. Alcaraz Pencils Washer Surgeon(s) Oscar Vale PA-C Estimated Blood Loss 5 cc Findings enlarged right inguinal lymph node Specimens Fresh A: Right inguinal lymph node Anesthesia LMA Disposition Recovery Room / PACU Description of Procedure Prior to coming to the operating room the patient had gone to radiology for needle localization. After Scanning the radiologist recommended that we changed sides to the right side as this would be a better lymph node to go after. After this he was brought to the operating room. After informed consent was obtained the patient was placed on the OR table and successful placement of the laryngeal mask airway occurred. The right groin was then shaved and sterilely prepped and draped in usual fashion. I began with an inguinal incision just below the guidewire. We carried this down through the skin soft tissue and then cut the guidewire delivered into the wound itself. I continued to follow the guidewire down through the external oblique aponeurosis. We used primarily blunt dissection until we were down near the external iliac lymph nodes. I was able to use traction and small amounts electrocautery to slowly come around the the palpable lymph node in 360. I was able to burn the pedicle and remove the lymph node in one piece and sent to pathology. There was no bleeding. We thoroughly irrigated the wound. I closed it multiple layers using 2-0 Vicryl for the external oblique aponeurosis 3-0 Vicryl for the subcutaneous tissue and 4-0 Monocryl for the skin. Marcaine was injected around the area for postoperative analgesia and sterile dressings applied the patient was awaken extubated and transferred recovery in stable condition My physician's assistant store manager sales was present throughout the entire case. He helped prepped the patient as well as held retraction throughout the case. He also helped with wound closure and dressing placement I attest to the content of the Intraoperative Record and any orders documented therein. Any exceptions are noted below.
--- NOTE | 2017-03-17 11:17 | Discharge Instructions ---
Discharge Instructions Date of Service Mar 17, 2017. Visit Reason for Visit: Lymphadenopathy Discharge Discharge Diagnosis / Problem: lymph node biopsy Discharge Goals Goal(s): Decrease discomfort Activity Recommendations Activity Limitations: as noted below Shower/Bathe: tomorrow (remove bandage to shower) Anesthesia . Post Anesthesia Instructions: If you have had General Anesthesia or IV Sedation: * Do not drive today. * Resume driving when surgeon permits. * Do not make important decisions or sign legal documents today. * Call surgeon for: 1. Temperature elevations greater than 101 degrees F. 2. Uncontrollable pain. 3. Excessive bleeding. 4. Persistent nausea and vomiting. 5. Medication intolerance (nausea, vomiting or rash). * For nausea and vomiting use only clear liquids such as: tea, soda, bouillon until nausea subsides, then gradually increase diet as tolerated. * If you have any concerns or questions, call your surgeon's office. If physician is unavailable and it is an emergency, call 911 or go to the nearest emergency room. . Instructions / Follow-Up Instructions / Follow-Up Dr. Alcaraz in 1-2 weeks, call [phone] if you do not already have an appt Diet Recommendations Recommended Home Diet: no limitations Procedures Procedures Performed: Right Inguinal Lymph Node Excision Biopsy Pending Studies Studies pending at discharge: no Medical Emergencies . Who to Call and When: Medical Emergencies: If at any time you feel your situation is an emergency, please call 911 immediately. . Non-Emergent Contact Non-Emergency issues call your: Surgeon Call Non-Emergent contact if: you have a fever, temperature is above 101.5, your pain is not controlled, wound has increased pain, you have any medication questions . . "Provider Documentation" section prepared by Daniel Vale. .
--- NOTE | 2017-03-17 11:49 | Anesthesiology Progress Note ---
Anesthesia Post Op Note Date & Time Mar 17, 2017 at 11:49 Vital Signs Pain Intensity: 0 Vital Signs Past 12 Hours Date Time Temp Pulse Resp B/P (MAP) Pulse Ox O2 Delivery O2 Flow Rate FiO2 03/17/17 11:40 72 13 127/52 97 Room Air 03/17/17 11:30 69 14 153/61 100 Oxymask 10 03/17/17 11:20 72 12 142/67 100 Oxymask 10 03/17/17 11:13 36.2 72 16 150/63 100 Oxymask 10 03/17/17 08:09 36.7 75 21 143/60 (87) 96 Room Air Notes Mental Status: alert / awake / arousable, participated in evaluation Pt Amnestic to Procedure: Yes Nausea / Vomiting: adequately controlled Pain: adequately controlled Airway Patency, RR, SpO2: stable & adequate BP & HR: stable & adequate Hydration State: stable & adequate Anesthetic Complications: no major complications apparent
[2017-03-17 12:15] VITALS: BP 118/56; PULSE 73; TEMP 36.5; O2SAT 93
[2017-03-17 12:47] VITALS: BP 126/60; PULSE 75; TEMP 36.3; O2SAT 95
[2017-03-17 13:11] VITALS: BP 120/55; PULSE 75; TEMP 36.5; O2SAT 95
== END | disposition home or self-care (01) ==
LOC: C.ACU 07:15
PROVIDERS: ATTEND Surgery
DX: R59.1 Generalized enlarged lymph nodes (principal); K76.9 Liver disease, unspecified; K83.0 Cholangitis; Z88.2 Allergy status to sulfonamides; F32.9 Major depressive disorder, single episode, unspecified; K21.9 Gastro-esophageal reflux disease without esophagitis; I10 Essential (primary) hypertension; E03.9 Hypothyroidism, unspecified; E11.9 Type 2 diabetes mellitus without complications; G47.33 Obstructive sleep apnea (adult) (pediatric); Z98.890 Other specified postprocedural states; R63.4 Abnormal weight loss; Z68.26 Body mass index [BMI] 26.0-26.9, adult; Z79.4 Long term (current) use of insulin; Z91.040 Latex allergy status; Z90.89 Acquired absence of other organs; Z85.828 Personal history of other malignant neoplasm of skin; Z82.49 Family history of ischemic heart disease and other diseases of the circulatory system; Z81.8 Family history of other mental and behavioral disorders; Z83.3 Family history of diabetes mellitus; Z80.9 Family history of malignant neoplasm, unspecified

== ENCOUNTER → 2017-06-09 | Outpatient (CLI) | payer BC ==
[~2017-06-09] MED LIST changes: -AMIT25TA9 PO; -ATROPINE SULFATE 0.1 MG/ML 5ML SYR IV PRN; -BENZ1CAP90 PO; -BUPIVACAINE/EPINEPHRINE 0.5% MPF 1:200,000 30 ML VIAL ONE; -CEFAZOLIN 2000MG IV PUSH 10 ML IV SCH; -CLR10 PO; -DEXT30TA7 PO; -FENTANYL CITRATE INJ 50 MCG/1 ML 2 ML VIAL IV PRN; -FENTANYL CITRATE INJ 50 MCG/1 ML 2 ML VIAL ONE; -HUMULIN NPH SC; -HYDR-3126 PO; -LABETALOL HCL IV 5 MG/ML 20ML IV PRN; -LACTATED RINGER'S 1000ML 1,000 ML IV SCH; -LEVO150T9 PO; -LIDOCAINE HCL 2% 2 ML VIAL (20MG/ML) ONE; -MULTTAB58 PO; -MoRPHine SULFATE 2 MG/ML CARP IV PRN; -ONDANSETRON INJ 2 MG/ML 2 ML VIAL IV PRN; -ONDANSETRON INJ 2 MG/ML 2 ML VIAL ONE; -OXYC-90 PO; +OXYC1TAB3 PO; -OXYCODONE HCL IR 5 MG TAB (IMMEDIATE RELEASE) PO PRN; -PROPOFOL IV EMULSION 10 MG/ML 20 ML VIAL IV ONE
[2017-06-10 06:46] LABS: HEMOGLOBIN A1C 6.3 % (4.5-5.6)
== END | disposition home or self-care (01) ==
LOC: C.LAB1850 16:15
PROVIDERS: ATTEND Physician Assistant
DX: E11.65 Type 2 diabetes mellitus with hyperglycemia (principal); E03.9 Hypothyroidism, unspecified; R19.7 Diarrhea, unspecified

== ENCOUNTER → 2017-08-11 | Day surgery (SDC) | payer BC ==
[2017-07-15 10:42] VITALS: Ht 177.8 cm; Wt 79.5 kg
[~2017-08-11] VITALS: Ht 177.8 cm; Wt 79.5 kg
[~2017-08-11] MED LIST changes: +500ML BSS 0.3ML EPI 1:1000PF IRRIG ONE; +ACETAMINOPHEN 325 MG TAB PO PRN; +AMIT25TA9 PO; +AMVISC PLUS 0.8ML SYRINGE INT OCU ONE; -ATR10 PO; +ATROPINE SULFATE 0.1 MG/ML 5ML SYR IV PRN; +BETAXOLOL HCL 0.25% OP SUSP PER DROP CHARGE OPL SCH; +BRIMONIDINE TART 0.2% OP SOLN PER DROP CHARGE ONE; +BSS FLUSH ONE; -CHOL4POW12 PO; +ENDOCOAT 0.85ML SYRINGE INT OCU ONE; +EpHEDrine SULFATE INJ 50 MG/ML AMP IV PRN; +EpINEphrine INJ 1MG/ML AMP 1 MG/ML AMP ONE; +HUMULIN NPH SC; +HYDR-3126 PO; +LACTATED RINGER'S 1000ML 500 ML IV SCH; +LEVO150T9 PO; +LIDOCAINE 4% OP SOLN DROP CHARGE ONE; +LIDOCAINE 4% OP SOLN DROP CHARGE OPL SCH; +LIDOCAINE HCL 1% MPF 2 ML VIAL ONE; +MIDAZOLAM HCL 1 MG/ML 2ML VIAL ONE; +MIX: 4ML BSS 1ML EPI 1:1000 PF INSTIL ONE; +MOXIFLOXACIN OPH SOLN PER DROP CHARGE ONE; +MULTTAB58 PO; -OXYC1TAB3 PO; +PHENYLEPHRINE HCL 10% OP SOLN PER DROP CHARGE OPL SCH; +POVIDONE-IODINE OP SOLN 30 ML BTL ONE; +PROPARACAINE 0.5% OP SOLN PER DROP CHARGE OPL SCH; -SYN137 PO; +TOBRAMYCIN/DEXAMETHASONE OPH OINT PER APPLN CHARGE ONE
[2017-08-11] MEDS: PHENYLEPHRINE HCL 2.5% OP SOLN PER DROP CHARGE OPL SCH ×2 (08:18→08:23)
[2017-08-11] MEDS: TROPICAMIDE 1% OP SOLN PER DROP CHARGE OPL SCH ×2 (08:20→08:24)
[2017-08-11] MEDS: MOXIFLOXACIN OPH SOLN PER DROP CHARGE OPL SCH ×2 (08:21→08:27)
[2017-08-11] MEDS: CYCLOPENTOLATE HCL 1% OP SOLN PER DROP CHARGE OPL SCH ×2 (08:21→08:26)
--- NOTE | 2017-08-11 08:25 | History & Physical Bridge - [place] ---
H&P Re-Evaluation Bridge Note: I have examined the patient, reviewed the History & Physical and in the interval since the performance of the History & Physical I have noted the following changes of clinical significance: No changes noted
--- NOTE | 2017-08-11 09:08 | [facility] Operative Report ---
Operative Report Date of Service August 11, 2017. Operative Report 1. PREOPERATIVE DIAGNOSIS: Senile nuclear cataract, left eye. 2. POSTOPERATIVE DIAGNOSIS: Senile nuclear cataract, left eye. 3. PROCEDURE: Phacoemulsification of left cataract with posterior chamber lens implant, type [employer], model MX60, power +24.5 diopters. ANESTHESIA: Local standby. SURGEON: Dr. Khan. COMPLICATIONS: None. OPERATING TIME: 10 minutes. 4. OPERATION AND FINDINGS: DESCRIPTION OF PROCEDURE: The left pupil was dilated. The anesthetic was administered using a topical technique. The left eye was prepped and draped. A speculum was placed. A clear corneal incision was formed. The chamber was filled with Amvisc Plus and Endocoat. Epinephrine solution was used. A paracentesis was placed. A capsulorrhexis was performed. The nucleus was hydrodissected. The lens was removed with phacoemulsification. Time was 4.76 seconds. The aspiration unit was used to remove the cortex. The capsule was filled with Amvisc Plus. The lens implant was folded and placed into the capsule. The incision was hydrated. The Amvisc was aspirated. The wound was secure. The chamber was deep. The pupil was round. Brimonidine, TobraDex ointment and Vigamox solution were placed. The speculum was removed. The patient was returned to the Recovery Room in stable condition. I attest to the content of the Intraoperative Record and any orders documented therein. Any exceptions are noted below. The scribe's documentation has been prepared in my presence, under my direction and personally reviewed by me in its entirety. I confirm that the note above accurately reflects all work, treatment, procedures, and medical decision making performed by me. I personally scribed for Easton Khan M.D. ([email or web address]) on 08/11/17 at 09:08. Electronically submitted by Madeline Helton ([email or web address]).
--- NOTE | 2017-08-11 09:09 | Discharge Instructions-SurgCtr ---
Discharge Instructions Date of Service August 11, 2017. Visit Reason for Visit: Cataract Left Eye Discharge Discharge Diagnosis / Problem: lens implant left eye Discharge Goals Goal(s): Improve function Activity Recommendations Activity Limitations: resume your previous activity Lifting Limitations: no more than 10 pounds Exercise/Sports Limitations: gradually increase as tolerated May Resume Sexual Activity: when tolerated Shower/Bathe: tomorrow Driving or Machine Use: resume 1 day after discharge Anesthesia . Post Anesthesia Instructions: If you have had General Anesthesia or IV Sedation: * Do not drive today. * Resume driving when surgeon permits. * Do not make important decisions or sign legal documents today. * Call surgeon for: 1. Temperature elevations greater than 101 degrees F. 2. Uncontrollable pain. 3. Excessive bleeding. 4. Persistent nausea and vomiting. 5. Medication intolerance (nausea, vomiting or rash). * For nausea and vomiting use only clear liquids such as: tea, soda, bouillon until nausea subsides, then gradually increase diet as tolerated. * If you have any concerns or questions, call your surgeon's office. If physician is unavailable and it is an emergency, call 911 or go to the nearest emergency room. . Instructions / Follow-Up Instructions / Follow-Up ACTIVITY RECOMMENDATIONS: * Light activities. * Mild irritation and blurred vision are common for the first few days. * You may walk outside, read, watch television. * Redness around the white part of the eye is common. MEDICATIONS: Resume previous medications unless instructed otherwise by your surgeon. Start all eye drops at 1 pm today: * Eye drops (today and tomorrow): Prednisone - one drop in operative eye every 3 hours while awake Ofloxacin - one drop in operative eye every 3 hours while awake SPECIAL CARE INSTRUCTIONS: * Tape plastic shield over eye to sleep at night. Call your doctor at with any concerns or problems. FOLLOW UP VISIT: Follow-up with Dr Khan at [place] office as scheduled. Diet Recommendations Home Diet: no limitations Procedures Procedures Performed: Left Cataract Phacoemulsification With Intraocular Lens Implant Pending Studies Studies pending at discharge: no Medical Emergencies . Who to Call and When: Medical Emergencies: If at any time you feel your situation is an emergency, please call 911 immediately. . Non-Emergent Contact Non-Emergency issues call your: Boiler Assistant Operator Call Non-Emergent contact if: your pain is not controlled [phone] . . "Provider Documentation" section prepared by Easton Khan. .
[2017-08-11 09:18] VITALS: TEMP 37.1
[2017-08-11 09:45] VITALS: BP 131/75; PULSE 65; O2SAT 97
--- NOTE | 2017-08-11 09:49 | Anesthesiology Progress Note ---
Anesthesia Post Op Note Date & Time August 11, 2017 at 09:49 Vital Signs Pain Intensity: 0 Vital Signs Past 12 Hours Date Time Temp Pulse Resp B/P (MAP) Pulse Ox O2 Delivery O2 Flow Rate FiO2 08/11/17 09:45 65 16 131/75 (93) 97 Room Air 08/11/17 09:18 37.1 64 16 130/61 (84) 97 Room Air 08/11/17 08:06 36.7 68 20 137/74 (95) 95 Room Air Notes Mental Status: alert / awake / arousable, participated in evaluation Nausea / Vomiting: adequately controlled Pain: adequately controlled Airway Patency, RR, SpO2: stable & adequate BP & HR: stable & adequate Hydration State: stable & adequate Anesthetic Complications: no major complications apparent
== END | disposition home or self-care (01) ==
LOC: X.SURG 07:31
PROVIDERS: ATTEND Specialist
DX: H25.12 Age-related nuclear cataract, left eye (principal); K76.9 Liver disease, unspecified; K21.9 Gastro-esophageal reflux disease without esophagitis; E11.9 Type 2 diabetes mellitus without complications; F41.9 Anxiety disorder, unspecified; F32.9 Major depressive disorder, single episode, unspecified; G47.33 Obstructive sleep apnea (adult) (pediatric); Z79.4 Long term (current) use of insulin; Z79.899 Other long term (current) drug therapy; Z88.2 Allergy status to sulfonamides; Z88.8 Allergy status to other drugs, medicaments and biological substances; Z91.040 Latex allergy status